=== PATIENT | male | born 1950 | race Caucasian/White ===

== ENCOUNTER → 2017-09-19 | Outpatient (CLI) | payer MEDICARE, OTHER ==
--- NOTE | 2017-09-19 16:37 | RADIOLOGY REPORT (SQ) ---
EXAM DESCRIPTION: CHEST PA/LATERAL COMPLETED DATE/TIME: 09/19/2017 4:17 pm REASON FOR STUDY: COUGH COMPARISON: 11/03/2015. EXAM PARAMETERS: NUMBER OF VIEWS: two views TECHNIQUE: Digital Frontal and Lateral radiographic views of the chest acquired. RADIATION DOSE: NA LIMITATIONS: none FINDINGS: LUNGS AND PLEURA: No opacities, masses or pneumothorax. No pleural effusion. MEDIASTINUM AND HILAR STRUCTURES: No masses or contour abnormalities. HEART AND VASCULAR STRUCTURES: Heart normal size. No evidence for failure. BONES: No acute findings. HARDWARE: Pacemaker. OTHER: No other significant finding. IMPRESSION: NO SIGNIFICANT RADIOGRAPHIC FINDING IN THE CHEST. TECHNICAL DOCUMENTATION: JOB ID: [id number] [employer]- All Rights Reserved
== END ==
LOC: OD 16:02
PROVIDERS: ATTEND Family Medicine
DX: R05 Cough (principal)
CPT/HCPCS: 71020

== ENCOUNTER → 2018-01-28 | Outpatient (CLI) | payer MEDICARE ==
--- NOTE | 2018-01-28 10:14 | RADIOLOGY REPORT (SQ) ---
EXAM DESCRIPTION: HIP LEFT AP/LATERAL COMPLETED DATE/TIME: 01/28/2018 9:23 am REASON FOR STUDY: LEFT HIP PAIN M25.552 PAIN IN LEFT HIP COMPARISON: None. NUMBER OF VIEWS: Two views. TECHNIQUE: AP pelvis and additional frog-leg view of the left hip. LIMITATIONS: None. FINDINGS: MINERALIZATION: Normal. LEFT HIP: No fracture or dislocation. No worrisome bone lesions. No contour deformity. No joint spa ce narrowing. RIGHT HIP: No fracture or dislocation. No worrisome bone lesions. PUBIS AND ISCHIUM: No fracture. PELVIS: No fracture. SACRUM: No fracture or dislocation. No worrisome bone lesions. LOWER LUMBAR SPINE: No fracture or dislocation. No worrisome bone lesions. No significant disc disea se. SOFT TISSUES: No findings. OTHER: No other significant finding. IMPRESSION: NEGATIVE STUDY OF THE LEFT HIP AND PELVIS. NO EXPLANATION FOR PAIN. TECHNICAL DOCUMENTATION: JOB ID: [id number] [employer]- All Rights Reserved Reading location - IP/workstation name: [email or web address]
== END ==
LOC: OD 09:01
PROVIDERS: ATTEND Physician Assistant
DX: M25.552 Pain in left hip (principal)

== ENCOUNTER → 2018-04-25 | Outpatient (CLI) | payer MEDICARE ==
--- NOTE | 2018-04-25 13:19 | RADIOLOGY REPORT (SQ) ---
EXAM DESCRIPTION: CT ABD/PELVIS NO ORAL OR IV COMPLETED DATE/TIME: 04/25/2018 12:29 pm REASON FOR STUDY: HEMATURIA (R31.9) R31.9 HEMATURIA, UNSPECIFIED COMPARISON: None. TECHNIQUE: CT scan of the abdomen and pelvis performed without intravenous or oral contrast. Images reviewed with lung, soft tissue, and bone windows. Reconstructed coronal and sagittal MPR images revi ewed. All images stored on PACS. All CT scanners at this facility use dose modulation, iterative reconstruction, and/or weight based d osing when appropriate to reduce radiation dose to as low as reasonably achievable (ALARA). [facility]: Dose Right [facility]: CareDose [facility]: Dose Right [facility]: Teradose 4D [facility]: [employer] RADIATION DOSE: CT Rad equipment meets quality standard of care and radiation dose reduction techniq ues were employed. CTDIvol: 31.3 mGy. DLP: 1718 mGy-cm.mGy. LIMITATIONS: Body habitus. FINDINGS: LOWER CHEST: No acute findings. NON-CONTRASTED LIVER, SPLEEN, ADRENALS: Evaluation limited by lack of IV contrast. No identified sign ificant masses. PANCREAS: No masses. No peripancreatic inflammatory changes. GALLBLADDER: Gallstones. No inflammatory changes to suggest cholecystitis. RIGHT KIDNEY AND URETER: No suspicious masses. Assessment limited by lack of IV contrast. No signif icant calcifications. No hydronephrosis or hydroureter. LEFT KIDNEY AND URETER: No suspicious masses. Assessment limited by lack of IV contrast. No signifi cant calcifications. No hydronephrosis or hydroureter. AORTA AND RETROPERITONEUM: No aneurysm. No retroperitoneal masses or adenopathy. BOWEL AND PERITONEAL CAVITY: No obvious masses or inflammatory changes. No free fluid. APPENDIX: Not visualized. PELVIS, BLADDER, AND ABDOMINAL WALL:No abnormal masses. No free fluid. Bladder normal. BONES: No acute findings OTHER: No other significant finding. IMPRESSION: No acute findings in the abdomen or pelvis. COMMENT: Quality ID # 436: Final reports with documentation of one or more dose reduction techniques (e.g., Automated exposure control, adjustment of the mA and/or kV according to patient size, use of iterative reconstruction technique) TECHNICAL DOCUMENTATION: JOB ID: [id number] [employer]- All Rights Reserved Reading location - IP/workstation name: [email or web address]
== END ==
LOC: RAD 12:13
PROVIDERS: ATTEND Family Medicine
DX: R31.9 Hematuria, unspecified (principal)
CPT/HCPCS: 74176

== ENCOUNTER → 2018-12-01 | Day surgery (SDC) | payer MEDICARE ==
[~2018-12-01] MED LIST: BUPIVACAINE HCL 0.5 % INJ/PF 30 ML SDV ONE; METHYLPREDNISOLONE ACETATE INJ 80 MG/1 ML VIAL ONE
--- NOTE | 2018-12-01 14:37 | RADIOLOGY REPORT (SQ) ---
EXAM DESCRIPTION: INJECT/ASPIR HIP/SHLDR/KNEE; FLUORO/NEEDLE PLACEMENT COMPLETED DATE/TIME: 12/01/2018 2:02 pm REASON FOR STUDY: OA LEFT HIP (M16.12) M16.12 UNILATERAL PRIMARY OSTEOARTHRITIS, LEFT HIP COMPARISON: None. FLUOROSCOPY TIME: 34 seconds. 1 images saved to PACS. LIMITATIONS: None. PROCEDURE: SITE OF INJECTION: Left hip. LOCALIZING CONTRAST TYPE AND DOSE: 1 mL Omnipaque 300. MEDICATION TYPE AND DOSE: 5 mL Sensorcaine and 80 mg Depo-Medrol. Using local anesthesia and sterile technique with fluoroscopic guidance, the needle was advanced into the joint. Iodinated contrast was injected to verify intraarticular placement. This was followed by therapeutic injection of the indicated medications. The needle was removed. There were no immediat e complications. Preprocedure pain level: 3/5. Postprocedure pain level: 1/5. IMPRESSION: THERAPEUTIC INJECTION OF THE LEFT HIP JOINT ABOVE. COMMENT: Patient medication list reviewed: Yes- Quality ID# 130:Eligible professional attests to doc umenting in the medical record they obtained, updated, or reviewed the patient's current medications. . Quality ID 145: Final reports for procedures using fluoroscopy that document radiation exposure chidi jessy, or exposure time and number of fluorographic images (if radiation exposure indices are not avail able) TECHNICAL DOCUMENTATION: JOB ID: [id number] [employer]- All Rights Reserved Reading location - IP/workstation name: [email or web address]
--- NOTE | 2018-12-01 14:37 | RADIOLOGY REPORT (SQ) ---
EXAM DESCRIPTION: INJECT/ASPIR HIP/SHLDR/KNEE; FLUORO/NEEDLE PLACEMENT COMPLETED DATE/TIME: 12/01/2018 2:02 pm REASON FOR STUDY: OA LEFT HIP (M16.12) M16.12 UNILATERAL PRIMARY OSTEOARTHRITIS, LEFT HIP COMPARISON: None. FLUOROSCOPY TIME: 34 seconds. 1 images saved to PACS. LIMITATIONS: None. PROCEDURE: SITE OF INJECTION: Left hip. LOCALIZING CONTRAST TYPE AND DOSE: 1 mL Omnipaque 300. MEDICATION TYPE AND DOSE: 5 mL Sensorcaine and 80 mg Depo-Medrol. Using local anesthesia and sterile technique with fluoroscopic guidance, the needle was advanced into the joint. Iodinated contrast was injected to verify intraarticular placement. This was followed by therapeutic injection of the indicated medications. The needle was removed. There were no immediat e complications. Preprocedure pain level: 3/5. Postprocedure pain level: 1/5. IMPRESSION: THERAPEUTIC INJECTION OF THE LEFT HIP JOINT ABOVE. COMMENT: Patient medication list reviewed: Yes- Quality ID# 130:Eligible professional attests to doc umenting in the medical record they obtained, updated, or reviewed the patient's current medications. . Quality ID 145: Final reports for procedures using fluoroscopy that document radiation exposure chidi jessy, or exposure time and number of fluorographic images (if radiation exposure indices are not avail able) TECHNICAL DOCUMENTATION: JOB ID: [id number] [employer]- All Rights Reserved Reading location - IP/workstation name: [email or web address]
== END ==
LOC: RAD 12:31
PROVIDERS: ATTEND Orthopaedic Surgery Sports Medicine
DX: M16.12 Unilateral primary osteoarthritis, left hip (principal)
CPT/HCPCS: 20610; 77002; J3490; J1040

== ENCOUNTER → 2019-01-21 | Outpatient (CLI) | payer MEDICARE ==
--- NOTE | 2019-01-21 16:38 | RADIOLOGY REPORT (SQ) ---
EXAM DESCRIPTION: FEMUR LEFT COMPLETED DATE/TIME: 01/21/2019 4:12 pm REASON FOR STUDY: M25.552 PAIN IN LEFT HIP R10.32 LEFT LOWER QUADRANT PAIN COMPARISON: Pelvis and left hip films 01/28/2018 NUMBER OF VIEWS: Two views. TECHNIQUE: Two radiographic images acquired of the left femur to include hip and knee in at least on e projection. LIMITATIONS: Morbidly obese patient FINDINGS: MINERALIZATION: Normal. BONES: There is avascular necrosis along the weight-bearing surface left femoral head, with subcortic al sclerosis and articular surface collapse. No acute fracture of the left femur. SOFT TISSUES: No obvious swelling or foreign body. OTHER: No other significant finding. IMPRESSION: Avascular necrosis left femoral head TECHNICAL DOCUMENTATION: JOB ID: [id number] [employer]- All Rights Reserved Reading location - IP/workstation name: [email or web address]
--- NOTE | 2019-01-21 16:40 | RADIOLOGY REPORT (SQ) ---
EXAM DESCRIPTION: HIP LEFT AP/LATERAL COMPLETED DATE/TIME: 01/21/2019 4:12 pm REASON FOR STUDY: M25.552 R10.32 LEFT LOWER QUADRANT PAIN COMPARISON: Left femur films same date Left hip films 01/28/2018 CT abdomen pelvis 04/25/2018 NUMBER OF VIEWS: Two views. TECHNIQUE: AP pelvis and additional frog-leg view of the left hip. LIMITATIONS: Morbidly obese patient FINDINGS: MINERALIZATION: Normal. LEFT HIP: No acute fracture. There is avascular necrosis with left femoral head subcortical sclerosi s and articular surface collapse. RIGHT HIP: No fracture or dislocation. No worrisome bone lesions. PUBIS AND ISCHIUM: No fracture. PELVIS: No fracture. SACRUM: No fracture or dislocation. No worrisome bone lesions. LOWER LUMBAR SPINE: Not in the field of view SOFT TISSUES: No findings. OTHER: Left SI joint sclerosis IMPRESSION: Avascular necrosis left femoral head TECHNICAL DOCUMENTATION: JOB ID: [id number] [employer]- All Rights Reserved Reading location - IP/workstation name: [email or web address]
--- NOTE | 2019-01-21 17:59 | RADIOLOGY REPORT (SQ) ---
EXAM DESCRIPTION: U/S NON OB PEL LTD W/DOPPLER COMPLETED DATE/TIME: 01/21/2019 5:34 pm REASON FOR STUDY: R10.32 LEFT LOWER QUADRANT PAIN R10.32 LEFT LOWER QUADRANT PAIN COMPARISON: None. TECHNIQUE: Dynamic and static grayscale images acquired of the localized site of clinical concern an d recorded on PACS. Additional selected color Doppler and spectral images recorded. SITE OF CONCERN: Left groin. Limited imaging of the right groin for comparison. LIMITATIONS: None. FINDINGS: SKIN AND SUBCUTANEOUS TISSUES: No masses. No fluid collections. No edema. No foreign fernando s. DEEP SOFT TISSUES/MUSCLES: No masses. No fluid collections. No edema. VASCULAR: No increased or decreased vascularity. No occlusions. OTHER: No hernias identified. IMPRESSION: Negative groin ultrasound. No mass or hernia detected. TECHNICAL DOCUMENTATION: JOB ID: [id number] [employer]- All Rights Reserved Reading location - IP/workstation name: [email or web address]
== END ==
LOC: RAD 15:51
PROVIDERS: ATTEND Family Medicine
DX: M87.852 Other osteonecrosis, left femur (principal); R10.32 Left lower quadrant pain; M25.552 Pain in left hip
CPT/HCPCS: 76857; 93976

== ENCOUNTER → 2019-01-29 | Outpatient (CLI) | payer MEDICARE ==
--- NOTE | 2019-01-29 17:06 | RADIOLOGY REPORT (SQ) ---
EXAM DESCRIPTION: U/S SCROTUM W/O DOPPLER COMPLETED DATE/TIME: 01/29/2019 4:49 pm REASON FOR STUDY: SCROTAL PAIN COMPARISON: None. TECHNIQUE: Static and realtime landaverde scale imaging of the scrotum and testes. Selected color Doppler and spectral images recorded to document blood flow. LIMITATIONS: None. FINDINGS: RIGHT: TESTICLE: Normal size, 3.6 x 3 x 2 cm in size. Normal echotexture. Normal blood flow. No mass. EPIDIDYMIS: Normal. HYDROCELE OR VARICOCELE: No. HERNIA OR EXTRA-TESTICULAR MASS: No. OTHER: No other significant finding. LEFT: TESTICLE: Normal size, 3.5 x 2.2 x 2.1 cm in size. Normal echotexture. Normal blood flow. No mass. EPIDIDYMIS: Normal. HYDROCELE OR VARICOCELE: Moderate-sized left hydrocele. No varicocele HERNIA OR EXTRA-TESTICULAR MASS: No. OTHER: No other significant finding. IMPRESSION: Moderate size left hydrocele. Otherwise unremarkable study TECHNICAL DOCUMENTATION: JOB ID: [id number] [employer]- All Rights Reserved Reading location - IP/workstation name: [email or web address]
== END ==
LOC: RAD 15:38
PROVIDERS: ATTEND Family Medicine
DX: N50.82 Scrotal pain (principal)
CPT/HCPCS: 76870

== ENCOUNTER 2020-08-21 09:07 | Inpatient (IN) | payer MEDICARE ==
[2020-08-21 11:08] LABS: HEMOGLOBIN 14.9 g/dL (13.5-17.0); MEAN CORPUSCULAR HGB CONC 33.1 g/dL (32.0-36.0); MEAN CORPUSCULAR VOLUME 97 fl (80-97); PLATELET COUNT 115 10^3/uL (150-450); RED BLOOD COUNT 4.65 10^6/uL (4.35-5.55); RED CELL DISTRIBUTION WIDTH 13.8 % (11.5-14.0); WHITE BLOOD COUNT 13.1 10^3/uL (4.0-10.5)
--- NOTE | 2020-08-21 11:10 | ER Document Report ---
Entered by MARIAELENA MORRELL SCRIBE 08/21/20 1004 Acting as scribe for:ROBBIE PIERSON MD ED General - General Chief Complaint: Flank Pain Stated Complaint: CHEST PAIN/FLANK PAIN Time Seen by Provider: 08/21/20 09:53 Mode of Arrival: Ambulatory Information source: Patient Notes: This 70 year old male patient presents to the emergency department today with complaints of right upper quadrant abdominal pain that began yesterday evening after eating. Patient was lying down in a chair when the yesterday night when the pain began. He reports that pain radiates into his back and right chest wall, mentioning that it "feels like pleurisy". Patient mentions some nasal co ngestion as well. TRAVEL OUTSIDE OF THE [place] IN LAST 30 DAYS: No - Related Data Allergies/Adverse Reactions: No Known Allergies Allergy (Verified 08/21/20 09:31) Home Medications: eliquis, lisinopril, pravastatin, clonidine, flomax, albuterol, flonase, metroprolol, topiramate Past Medical History - General Information source: Patient - Social History Smoking Status: Former Smoker Cigarette use (# per day): No - quit in 2000 Chew tobacco use (# tins/day): No Frequency of alcohol use: None Drug Abuse: None Lives with: Family Family History: Reviewed & Not Pertinent Patient has homicidal ideation: No - Past Medical History Cardiac Medical History: Reports: Hx Atrial Fibrillation, Hx Hypercholesterolemia, Hx Hypertension Pulmonary Medical History: Reports: Hx COPD GI Medical History: Reports: Hx Gastroesophageal Reflux Disease Past Surgical History: Reports: Hx Abdominal Surgery - hernia w/ 1ft bowel resected, Hx Cardiac Surgery - pacemaker-demand, Hx Orthopedic Surgery - lt hip - Immunizations Hx Diphtheria, Pertussis, Tetanus Vaccination: Yes Review of Systems - Review of Systems Constitutional: No symptoms reported EENT: See HPI, Nose congestion Cardiovascular: No symptoms reported Respiratory: No symptoms reported Gastrointestinal: See HPI, Abdominal pain Genitourinary: No symptoms reported Male Genitourinary: No symptoms reported Musculoskeletal: No symptoms reported Skin: No symptoms reported Hematologic/Lymphatic: No symptoms reported Neurological/Psychological: No symptoms reported -: Yes All other systems reviewed and negative Physical Exam - Vital signs Vitals: Temp Pulse Resp BP Pulse Ox 97.4 F 83 18 148/81 H 96 08/21/20 09:21 08/21/20 09:21 08/21/20 09:21 08/21/20 09:21 08/21/20 09:21 - Notes Notes: Physical Exam: General: Alert, appears well. HEENT: Normocephalic. Atraumatic. PERRL. Extraocular movements intact. Oropharynx clear. Neck: Supple. Non-tender. Respiratory: No respiratory distress. Clear and equal breath sounds bilaterally. Cardiovascular: Regular rate and rhythm. Abdominal: Morbidly obese. RUQ tenderness to palpation. No distension. Normal Bowel Sounds. Back: No gross abnormalities. Extremities: Moves all four extremities. Upper extremities: Normal inspection. Normal ROM. Lower extremities: Normal inspection. No edema. Normal ROM. Neurological: Normal cognition. AAOx4. Normal speech. Psychological: Normal affect. Normal Mood. Skin: Warm. Dry. Normal color. Course - Vital Signs Vital signs: Temp Pulse Resp BP Pulse Ox 97.4 F 83 18 148/81 H 96 08/21/20 09:21 08/21/20 09:21 08/21/20 09:21 08/21/20 09:21 08/21/20 09:21 - Laboratory Result Diagrams: 08/21/20 10:22 08/21/20 10:22 Laboratory results interpreted by me: 08/21/20 08/21/20 08/21/20 10:22 10:22 10:22 WBC 13.1 H Plt Count 115 L Seg Neuts % (Manual) 94 H Lymphocytes % (Manual) 3 L Abs Neuts (Manual) 12.3 H Abs Lymphs (Manual) 0.4 L Sodium 134.9 L Chloride 96 L Glucose 182 H Magnesium 1.5 L Total Bilirubin 2.0 H Creatine Kinase 47 L Lipase 19.6 L Urine Glucose (UA) 150 H Urine Ketones 20 H Urine Urobilinogen 4.0 H - Diagnostic Test Radiology reviewed: Image reviewed, Reports reviewed - Gallbladder ultrasound showed multiple stones with gallbladder wall thickening and pericholecystic fluid - EKG Interpretation by Me EKG shows normal: [place], Intervals, QRS Complexes, ST-T Waves Rate: Normal - 85 Rhythm: A.Fib [place]/QRS: RBBB When compared to previous EKG there are: Changes noted - Consults Dr. Christopher Time consulted: 12:01 Consulted provider: will see as inpatient Dr. Carrizales Time consulted: 12:04 Consulted provider: will see as inpatient Discharge - Discharge Clinical Impression: Acute calculous cholecystitis, Chronic atrial fibrillation Leukocytosis Qualifiers: Leukocytosis type: unspecified Qualified Code(s): D72.829 - Elevated white blood cell count, unspecified Condition: Stable Disposition: ADMITTED INPATIENT Admitting Provider: Justus Carrizales covering Unit Admitted: Telemetry I personally performed the services described in the documentation, reviewed and edited the documentation which was dictated to the scribe in my presence, and it accurately records my words and actions.
[2020-08-21 11:22] LABS: ALBUMIN 3.8 g/dL (3.5-5.0); ALKALINE PHOSPHATASE 61 U/L (38-126); ANION GAP 10 (5-19); APPEARANCE,URINE CLEAR; ASPARTATE AMINO TRANSFERASE 22 U/L (17-59); BILIRUBIN,DIRECT 0.1 mg/dL (0.0-0.4); BILIRUBIN,URINE NEGATIVE (NEGATIVE); BLOOD UREA NITROGEN 14 mg/dL (7-20); CALCIUM 9.2 mg/dL (8.4-10.2); CARBON DIOXIDE 29 mmol/L (22-30); CHLORIDE 96 mmol/L (98-107); COLOR,URINE YELLOW; CREATINE KINASE 47 U/L (55-170); GLUCOSE 182 mg/dL (75-110); GLUCOSE, URINE 150 mg/dL (NEGATIVE); KETONES,URINE 20 mg/dL (NEGATIVE); LEUKOCYTE ESTERASE,URINE NEGATIVE (NEGATIVE); NITRITE,URINE NEGATIVE (NEGATIVE); POTASSIUM 4.3 mmol/L (3.6-5.0); PROTEIN,URINE NEGATIVE (NEGATIVE); TOTAL PROTEIN 6.5 g/dL (6.3-8.2); URINE SPECIFIC GRAVITY 1.026
[2020-08-21 11:34] LABS: ABSOLUTE LYMPHOCYTES# (MANUAL) 0.4 10^3/uL (0.5-4.7); ABSOLUTE MONOCYTES # (MANUAL) 0.4 10^3/uL (0.1-1.4); BASOPHILS % (MANUAL) 0 % (0-2); EOSINOPHILS % (MANUAL) 0 % (0-6); LYMPHOCYTES % (MANUAL) 3 % (13-45); MONOCYTES % (MANUAL) 3 % (3-13); SEGMENTED NEUTROPHILS % (MAN) 94 % (42-78); TOTAL CELLS COUNTED 100
[2020-08-21 11:35] LABS: PLATELET COMMENT DECREASED; RBC MORPHOLOGY COMMENT NORMO-CYTIC/CHROMIC
--- NOTE | 2020-08-21 11:39 | RADIOLOGY REPORT (SQ) ---
EXAM DESCRIPTION: U/S ABDOMEN LIMITED W/O DOP IMAGES COMPLETED DATE/TIME: 08/21/2020 11:17 am REASON FOR STUDY: Postprandial RUQ abd pain COMPARISON: CT abdomen pelvis 04/25/2018 TECHNIQUE: Dynamic and static grayscale images acquired of the abdomen and recorded on PACS. Additio nal selected color Doppler and spectral images recorded. LIMITATIONS: Body habitus, midline bowel gas FINDINGS: PANCREAS: Diffusely fatty midline pancreas LIVER: No masses. Diffuse fatty infiltration. Mildly enlarged. LIVER VASCULATURE: Normal directional flow of the main portal vein and hepatic veins. GALLBLADDER: Multiple shadowing stones. Diffuse gallbladder wall thickening with the pericholecystic fluid worrisome for acute cholecystitis. ULTRASOUND-DETECTED STOCKTON'S SIGN: Negative. INTRAHEPATIC DUCTS AND COMMON DUCT: No intrahepatic biliary ductal dilatation. Common duct at the po rta hepatis not well seen. INFERIOR VENA CAVA: Normal flow. AORTA: Obscured by midline bowel gas RIGHT KIDNEY: No hydronephrosis. Grossly normal size PERITONEAL AND RIGHT PLEURAL SPACE: No ascites or effusions. OTHER: No other significant findings. IMPRESSION: Multiple shadowing gallstones. Gallbladder wall thickening with pericholecystic fluid. Findings are worrisome for acute cholecystitis. TECHNICAL DOCUMENTATION: JOB ID: [id number] 2010 [employer]- All Rights Reserved Reading location - IP/workstation name: [email or web address]
[2020-08-21] MEDS ORDERED: PIPERACILLIN/TAZOBACTAM 4.5 GM VIAL IV ONE (12:02)
[2020-08-21] MEDS ORDERED: MORPHINE SULFATE 10 MG/ML INJ IV ONE (12:11)
[2020-08-21] MEDS ORDERED: ONDANSETRON 4 MG TAB.RAPDIS PO ONE (12:11)
[2020-08-21] MEDS ORDERED: NORMAL SALINE 1000 ML 500 ML IV ONE (12:12)
--- NOTE | 2020-08-21 15:01 | EKG REPORT ---
SEVERITY:- ABNORMAL ECG - ATRIAL FIBRILLATION RIGHT BUNDLE BRANCH BLOCK and LAFB NONSPECIFIC ST-T CHANGES- INFERIOR LEADS : Confirmed by: Bradley Angel MD 21-Aug-2020 15:01:10
[2020-08-21] MEDS ORDERED: ALBUTEROL SULFATE HFA (90 MCG/PUFF) 8 GM MDI (1 MDI/ER DISP) IH PRN (15:04)
[2020-08-21] MEDS ORDERED: ALBUTEROL SULFATE HFA (90 MCG/PUFF) 8 GM MDI IH PRN (15:13)
[2020-08-21] MEDS ORDERED: FLUTICASONE PROPION IH SCH (15:15)
[2020-08-21] MEDS ORDERED: SALMETEROL IH SCH (15:15)
[2020-08-21] MEDS ORDERED: [UNRECOGNIZED DRUG - OTHER] IH SCH (15:15)
[2020-08-21] MEDS: RINGERS SOLUTION,LACTATED 1,000 ML IV PRN (15:34)
[2020-08-21 16:28] LABS: FREE T4 (FREE THYROXINE) 1.17 ng/dL (0.78-2.19)
[2020-08-21] MEDS: METOPROLOL SUCCINATE 50 MG TAB.SR.24H PO SCH (16:29)
[2020-08-21] MEDS: TAMSULOSIN HCL 0.4 MG CAP.SR.24H PO SCH (16:29)
[2020-08-21] MEDS: LISINOPRIL 10 MG TABLET PO SCH (16:30)
[2020-08-21 16:42] LABS: THYROID STIMULATING HORMONE 0.62 uIU/mL (0.47-4.68)
[2020-08-21 17:10] LABS: INTERNATIONAL RATION (INR) 1.22; PROTHROMBIN TIME 15.6 SEC (11.4-15.4)
[2020-08-21 17:11] LABS: PARTIAL THROMBOPLASTIN TIME 33.7 SEC (23.5-35.8)
[2020-08-21 17:17] LABS: PHOSPHORUS 3.5 mg/dL (2.5-4.5)
[2020-08-21] MEDS: AMPICILLIN SODIUM/SULBACTAM NA 3 GM in NORMAL SALINE 100 ML IV SCH (17:23)
[2020-08-21] MEDS: OXYCODONE-ACETAMINOPHEN 5-325 MG TABLET PO PRN ×2 (17:23→22:42)
[2020-08-21 17:32] LABS: TROPONIN I < 0.012 ng/mL
--- NOTE | 2020-08-21 17:39 | PDOC H&P ---
History of Present Illness Admission Date/PCP: 08/21/20 12:17 ADEEL RING MD History of Present Illness: DASHA PRASAD is a 70 year old male ,He has multiple comorbid conditions including chronic obstructive lung disease, morbid obesity BMI is 48, on chronic anticoagulation for CVA prophylaxis because of atrial fibrillation, he came to the emergency room for evaluation of upper abdominal pain radiating to his back, the pain is provoked typically after food ingestion, in the emergency room ultrasound of the upper quadrant of the abdomen was obtained demonstrated multiple shadowing stones, diffuse gallbladder wall thickening with pericholecystic fluid worrisome for acute cholecystitis. Past Medical History Cardiac Medical History: Reports: Atrial Fibrillation, Hyperlipidema, Hypertension Pulmonary Medical History: Reports: Chronic Obstructive Pulmonary Disease (COPD) GI Medical History: Reports: Gastroesophageal Reflux Disease Musculoskeltal Medical History: Denies: Arthritis Past Surgical History Past Surgical History: Reports: Orthopedic Surgery - lt hip Social History Lives with: Family Smoking Status: Former Smoker Electronic Cigarette use?: No Family History Family History: Reviewed & Not Pertinent Parental Family History Reviewed: Yes Children Family History Reviewed: Yes Sibling(s) Family History Reviewed.: Yes Medication/Allergy Home Medications: Pravastatin Sodium [Pravachol] 20 mg PO QHS 10/03/12 Apixaban [Eliquis 5 mg Tablet] 5 mg PO BID 12/30/15 Lisinopril 20 mg PO DAILY 12/30/15 Topiramate [Topamax 100 Mg Tablet] 100 mg PO QHS 12/30/15 Albuterol Sulfate [Albuterol Sulfate Hfa] 2 puff IH Q4HP PRN 08/21/20 Clonidine HCl [Catapres 0.1 mg Tablet] 0.1 mg PO QHS 08/21/20 Fluticasone Propion/Salmeterol [Fluticasone-Salmeterol 100-50] 1 inh IH Q12 08/21/20 Metoprolol Succinate [Toprol Xl 50 mg Tab.sr] 50 mg PO DAILY 08/21/20 Tamsulosin HCl [Flomax 0.4 mg Cap.sr] 0.4 mg PO DAILY 08/21/20 Allergies/Adverse Reactions: No Known Allergies Allergy (Verified 08/21/20 09:31) Review of Systems Constitutional: ABSENT: chills, fever(s), headache(s), weight gain, weight loss Eyes: ABSENT: visual disturbances Ears: ABSENT: hearing changes Cardiovascular: ABSENT: chest pain, dyspnea on exertion, edema, orthropnea, palpitations Respiratory: ABSENT: cough, hemoptysis Gastrointestinal: PRESENT: abdominal pain. ABSENT: constipation, diarrhea, hematemesis, hematochezia, nausea, vomiting Genitourinary: ABSENT: dysuria, hematuria Musculoskeletal: ABSENT: joint swelling Integumentary: ABSENT: rash, wounds Neurological: ABSENT: abnormal gait, abnormal speech, confusion, dizziness, focal weakness, syncope Psychiatric: ABSENT: anxiety, depression, homidical ideation, suicidal ideation Endocrine: ABSENT: cold intolerance, heat intolerance, menstrual abnormalities, polydipsia, polyuria Hematologic/Lymphatic: ABSENT: easy bleeding, easy bruising, lymphadenopathy Physical Exam Vital Signs: Temp Pulse Resp BP Pulse Ox 97.6 F 78 23 H 140/86 H 97 08/21/20 14:03 08/21/20 14:03 08/21/20 14:03 08/21/20 14:03 08/21/20 14:03 Intake & Output 08/20/20 08/21/20 08/22/20 06:59 06:59 06:59 Intake Total 500 Balance 500 Weight 154.5 kg General appearance: PRESENT: obese Head exam: PRESENT: atraumatic, normocephalic Eye exam: PRESENT: conjunctiva pink, EOMI, PERRLA Ear exam: PRESENT: normal external ear exam Mouth exam: PRESENT: moist, tongue midline Neck exam: PRESENT: full ROM Respiratory exam: PRESENT: clear to auscultation [place] Cardiovascular exam: PRESENT: RRR, +S1, +S2 Pulses: PRESENT: normal dorsalis pedis pul, +2 pedal pulses bilateral Vascular exam: PRESENT: normal capillary refill GI/Abdominal exam: PRESENT: normal bowel sounds, soft, tenderness, other - Right upper quadrant abdominal tenderness Rectal exam: PRESENT: deferred Neurological exam: PRESENT: alert, awake, oriented to person, oriented to place, oriented to time, oriented to situation, CN II-XII grossly intact Psychiatric exam: PRESENT: appropriate affect, normal mood Skin exam: PRESENT: dry, intact, warm Results Laboratory Results: 08/21/20 10:22 08/21/20 10:22 08/21/20 08/21/20 08/21/20 10:22 10:22 10:22 WBC 13.1 H RBC 4.65 Hgb 14.9 Hct 45.0 MCV 97 MCH 32.0 MCHC 33.1 RDW 13.8 Plt Count 115 L Seg Neutrophils % Not Reportable Sodium 134.9 L Potassium 4.3 Chloride 96 L Carbon Dioxide 29 Anion Gap 10 BUN 14 Creatinine 0.67 Est GFR ( Amer) > 60 Glucose 182 H Calcium 9.2 Phosphorus Magnesium 1.5 L Total Bilirubin 2.0 H AST 22 Alkaline Phosphatase 61 Ammonia Total Protein 6.5 Albumin 3.8 Amylase Lipase 19.6 L TSH Free T4 Urine Color YELLOW Urine Appearance CLEAR Urine pH 7.0 Ur Specific [place] 1.026 Urine Protein NEGATIVE Urine Glucose (UA) 150 H Urine Ketones 20 H Urine Blood NEGATIVE Urine Nitrite NEGATIVE Ur Leukocyte Esterase NEGATIVE Urine WBC (Auto) 1 Urine RBC (Auto) 3 08/21/20 08/21/20 08/21/20 10:22 16:50 16:50 WBC RBC Hgb Hct MCV MCH MCHC RDW Plt Count Seg Neutrophils % Sodium Potassium Chloride Carbon Dioxide Anion Gap BUN Creatinine Est GFR ( Amer) Glucose Calcium Phosphorus 3.5 Magnesium 1.5 L Total Bilirubin AST Alkaline Phosphatase Ammonia < 8.7 L Total Protein Albumin Amylase 32 Lipase 14.7 L TSH 0.62 Free T4 1.17 Urine Color Urine Appearance Urine pH Ur Specific [place] Urine Protein Urine Glucose (UA) Urine Ketones Urine Blood Urine Nitrite Ur Leukocyte Esterase Urine WBC (Auto) Urine RBC (Auto) 08/21/20 08/21/20 08/21/20 10:22 10:22 10:22 Creatine Kinase 47 L Troponin I < 0.012 NT-Pro-B Natriuret Pep 1260 H 08/21/20 16:50 Creatine Kinase 74 Troponin I NT-Pro-B Natriuret Pep Impressions: Abdomen Ultrasound 08/21/20 10:04 IMPRESSION: Multiple shadowing gallstones. Gallbladder wall thickening with pericholecystic fluid. Findings are worrisome for acute cholecystitis. Assessment & Plan - Diagnosis (1) Acute calculous cholecystitis Is this a current diagnosis for this admission?: Yes Plan: He has acute calculus cholecystitis, there is no biochemical evidence of choledocholithiasis, the alkaline phosphatase, SGOT/PT are normal, he has slight elevated serum bilirubin at 2, there is no evidence of gallstone pancreatitis, lipase is normal, surgery consulted, he has to stop Eliquis for 2 to 3 days before they can proceed to surgery (2) Morbid (severe) obesity due to excess calories Is this a current diagnosis for this admission?: Yes (3) Permanent atrial fibrillation Is this a current diagnosis for this admission?: Yes Plan: Is on Eliquis because of the A. fib, he has to stop Eliquis for 2 to 3 days - Time Time Spent: Greater than 70 Minutes Anticipated Discharge Disposition: Home, Self Care Anticipated Discharge Timeframe: within 48 hours
[2020-08-21] MEDS: ALBUTEROL SULFATE 0.083% NEB 2.5 MG/3 ML AMPUL NEB SCH ×2 (18:00→19:50)
--- NOTE | 2020-08-21 18:50 | PDOC CONSULTATION ---
Consultation Consult Date: 08/21/20 Provider Consulted: SURGICAL SURGICALIST Consult reason:: Acute cholecystitis History of Present Illness Admission Date/PCP: 08/21/20 12:17 ADEEL RING MD History of Present Illness: DASHA PRASAD is a 70 year old male seen at the request of Dr. Carrizales. This is a patient with multiple medical problems. He has obesity, atrial fibrillation, COPD. He presents with a 3-day history of sharp, stabbing right upper quadrant pain. His pain has been worsening in severity over the last 3 days. The pain would not go away, so he presented to the emergency department for evaluation. The pain started after eating turkey, ham, and dressing. The pain radiates around his right flank and into his back. He has had nausea and occasional vomiting. He denies chest pain, shortness of breath, fevers, chills, blurry vision, dizziness, orthostasis. He takes Eliquis for his atrial fibrillation. His last dose was 08/20/2020 at approximately 8 AM. Past Medical History Cardiac Medical History: Reports: Atrial Fibrillation, Hyperlipidema, Hypertension Pulmonary Medical History: Reports: Chronic Obstructive Pulmonary Disease (COPD) Neurological Medical History: Denies: Seizures GI Medical History: Reports: Gastroesophageal Reflux Disease Musculoskeltal Medical History: Denies: Arthritis Psychiatric Medical History: Denies: Depression Hematology: Denies: Anemia Past Surgical History Past Surgical History: Reports: Herniorrhaphy - Open ventral hernia repair with mesh, Orthopedic Surgery - lt hip Social History Lives with: Family Smoking Status: Former Smoker Electronic Cigarette use?: No Frequency of Alcohol Use: None - Previous heavy drinker, quit 20 years ago. Family History Family History: Reviewed & Not Pertinent Parental Family History Reviewed: Yes Children Family History Reviewed: Yes Sibling(s) Family History Reviewed.: Yes Medication/Allergy Home Medications: Pravastatin Sodium [Pravachol] 20 mg PO QHS 10/03/12 Apixaban [Eliquis 5 mg Tablet] 5 mg PO BID 12/30/15 Lisinopril 20 mg PO DAILY 12/30/15 Topiramate [Topamax 100 Mg Tablet] 100 mg PO QHS 12/30/15 Albuterol Sulfate [Albuterol Sulfate Hfa] 2 puff IH Q4HP PRN 08/21/20 Clonidine HCl [Catapres 0.1 mg Tablet] 0.1 mg PO QHS 08/21/20 Fluticasone Propion/Salmeterol [Fluticasone-Salmeterol 100-50] 1 inh IH Q12 08/21/20 Metoprolol Succinate [Toprol Xl 50 mg Tab.sr] 50 mg PO DAILY 08/21/20 Tamsulosin HCl [Flomax 0.4 mg Cap.sr] 0.4 mg PO DAILY 08/21/20 Allergies/Adverse Reactions: No Known Allergies Allergy (Verified 08/21/20 09:31) Review of Systems Constitutional: ABSENT: anorexia, chills, fatigue, fever(s), weakness Eyes: ABSENT: visual disturbances Ears: ABSENT: hearing changes Nose, Mouth, and Throat: ABSENT: headache(s) Cardiovascular: ABSENT: chest pain Respiratory: ABSENT: cough Gastrointestinal: PRESENT: abdominal pain, bloating, nausea, vomiting. ABSENT: hematemesis, hematochezia, melena Genitourinary: ABSENT: dysuria Musculoskeletal: PRESENT: back pain Integumentary: ABSENT: pruritus, rash Neurological: ABSENT: confusion, convulsions, dizziness Psychiatric: ABSENT: anxiety, depression Endocrine: ABSENT: cold intolerance, heat intolerance Hematologic/Lymphatic: PRESENT: easy bruising Physical Exam Vital Signs: Temp Pulse Resp BP Pulse Ox 97.6 F 75 18 140/86 H 92 08/21/20 14:03 08/21/20 18:00 08/21/20 18:00 08/21/20 14:03 08/21/20 18:00 Intake & Output 08/20/20 08/21/20 08/22/20 06:59 06:59 06:59 Intake Total 500 Balance 500 Weight 154.5 kg General appearance: PRESENT: morbidly obese Head exam: PRESENT: atraumatic, normocephalic Eye exam: PRESENT: EOMI, PERRLA. ABSENT: scleral icterus Mouth exam: PRESENT: moist, neck supple Neck exam: ABSENT: meningismus, tenderness, tracheal deviation Respiratory exam: PRESENT: unlabored. ABSENT: tachypnea, wheezes Cardiovascular exam: ABSENT: tachycardia GI/Abdominal exam: PRESENT: Romo's sign, tenderness - Right upper quadrant, other - Obese. ABSENT: distended Rectal exam: PRESENT: deferred Extremities exam: ABSENT: clubbing Musculoskeletal exam: ABSENT: deformity Neurological exam: PRESENT: alert, oriented to person, oriented to place, oriented to time, oriented to situation, CN II-XII grossly intact Psychiatric exam: ABSENT: agitated, anxious, depressed Skin exam: ABSENT: abrasion, cyanosis, erythema, jaundice Results Laboratory Results: 08/21/20 10:22 08/21/20 10:22 08/21/20 08/21/20 08/21/20 10:22 10:22 10:22 WBC 13.1 H RBC 4.65 Hgb 14.9 Hct 45.0 MCV 97 MCH 32.0 MCHC 33.1 RDW 13.8 Plt Count 115 L Seg Neutrophils % Not Reportable Sodium 134.9 L Potassium 4.3 Chloride 96 L Carbon Dioxide 29 Anion Gap 10 BUN 14 Creatinine 0.67 Est GFR ( Amer) > 60 Glucose 182 H Calcium 9.2 Phosphorus Magnesium 1.5 L Total Bilirubin 2.0 H AST 22 Alkaline Phosphatase 61 Ammonia Total Protein 6.5 Albumin 3.8 Amylase Lipase 19.6 L TSH Free T4 Urine Color YELLOW Urine Appearance CLEAR Urine pH 7.0 Ur Specific [place] 1.026 Urine Protein NEGATIVE Urine Glucose (UA) 150 H Urine Ketones 20 H Urine Blood NEGATIVE Urine Nitrite NEGATIVE Ur Leukocyte Esterase NEGATIVE Urine WBC (Auto) 1 Urine RBC (Auto) 3 08/21/20 08/21/20 08/21/20 10:22 16:50 16:50 WBC RBC Hgb Hct MCV MCH MCHC RDW Plt Count Seg Neutrophils % Sodium Potassium Chloride Carbon Dioxide Anion Gap BUN Creatinine Est GFR ( Amer) Glucose Calcium Phosphorus 3.5 Magnesium 1.5 L Total Bilirubin AST Alkaline Phosphatase Ammonia < 8.7 L Total Protein Albumin Amylase 32 Lipase 14.7 L TSH 0.62 Free T4 1.17 Urine Color Urine Appearance Urine pH Ur Specific [place] Urine Protein Urine Glucose (UA) Urine Ketones Urine Blood Urine Nitrite Ur Leukocyte Esterase Urine WBC (Auto) Urine RBC (Auto) 08/21/20 08/21/20 08/21/20 10:22 10:22 10:22 Creatine Kinase 47 L CK-MB (CK-2) Troponin I < 0.012 NT-Pro-B Natriuret Pep 1260 H 08/21/20 08/21/20 16:50 16:50 Creatine Kinase 74 CK-MB (CK-2) 0.80 Troponin I < 0.012 NT-Pro-B Natriuret Pep Impressions: Abdomen Ultrasound 08/21/20 10:04 IMPRESSION: Multiple shadowing gallstones. Gallbladder wall thickening with pericholecystic fluid. Findings are worrisome for acute cholecystitis. Assessment & Plan - Diagnosis (1) Acute calculous cholecystitis Is this a current diagnosis for this admission?: Yes - Plan Summary Plan Summary: 70-year-old male with multiple medical problems. He has acute cholecystitis on ultrasound. Patient has an obvious Romo sign on examination. I believe his physical exam, laboratory findings, and history are consistent with acute cholec ystitis. The patient is currently on Eliquis. His last dose was yesterday. Patient needs 48 hours from his last dose of Eliquis, before surgery can safely be performed. Continue antibiotics. Wait until Eliquis has metabolized, then will perform surgery.
--- NOTE | 2020-08-21 18:50 | EKG REPORT ---
SEVERITY:- ABNORMAL ECG - ATRIAL-SENSED VENTRICULAR-PACED COMPLEXES RIGHT BUNDLE BRANCH BLOCK NONSPECIFIC ST-T CHANGES- INFERIOR LEADS : Confirmed by: Bradley Angel MD 21-Aug-2020 18:49:29
[2020-08-21] MEDS ORDERED: PRAVASTATIN SODIUM 20 MG PO SCH (22:00)
[2020-08-21] MEDS: TOPIRAMATE 100 MG TABLET PO SCH (22:42)
[2020-08-21] MEDS: CLONIDINE HCL 0.1 MG TABLET PO SCH (22:42)
[2020-08-21 23:26] LABS: APPEARANCE,URINE SLIGHTLY-CLOUDY; BILIRUBIN,URINE NEGATIVE (NEGATIVE); COLOR,URINE AMBER; GLUCOSE, URINE 50 mg/dL (NEGATIVE); KETONES,URINE TRACE mg/dL (NEGATIVE); LEUKOCYTE ESTERASE,URINE NEGATIVE (NEGATIVE); NITRITE,URINE NEGATIVE (NEGATIVE); PROTEIN,URINE 30 mg/dL (NEGATIVE); URINE SPECIFIC GRAVITY 1.035
[2020-08-21] MEDS: AMPICILLIN SOD/SULBACTAM 3 GM VIAL IV PRN (23:26)
[2020-08-21 23:39] LABS: URINE AMPHETAMINES SCREEN NEGATIVE; URINE BARBITURATES SCREEN NEGATIVE; URINE BENZODIAZEPINES SCREEN NEGATIVE; URINE COCAINE SCREEN NEGATIVE; URINE MARIJUANA (THC) SCREEN NEGATIVE; URINE METHADONE SCREEN NEGATIVE; URINE PHENCYCLIDINE SCREEN NEGATIVE
[2020-08-21 23:49] LABS: CREATINE KINASE MB 0.62 ng/mL (<4.55)
[2020-08-21 23:50] LABS: TROPONIN I < 0.012 ng/mL
[2020-08-22] MEDS: ALBUTEROL SULFATE 0.083% NEB 2.5 MG/3 ML AMPUL NEB SCH ×9 (00:23→23:08)
[2020-08-22] MEDS: AMPICILLIN SODIUM/SULBACTAM NA 3 GM in NORMAL SALINE 100 ML IV SCH ×4 (03:59→19:39)
[2020-08-22] MEDS: OXYCODONE-ACETAMINOPHEN 5-325 MG TABLET PO PRN ×2 (06:07→21:22)
[2020-08-22] MEDS: RINGERS SOLUTION,LACTATED 1,000 ML IV PRN ×2 (06:11→21:25)
[2020-08-22 07:02] LABS: HEMATOCRIT 42.8 % (37.9-51.0); HEMOGLOBIN 14.4 g/dL (13.5-17.0); MEAN CORPUSCULAR HEMOGLOBIN 32.5 pg (27.0-33.4); MEAN CORPUSCULAR HGB CONC 33.6 g/dL (32.0-36.0); MEAN CORPUSCULAR VOLUME 97 fl (80-97); PLATELET COUNT 101 10^3/uL (150-450); RED BLOOD COUNT 4.42 10^6/uL (4.35-5.55); WHITE BLOOD COUNT 18.5 10^3/uL (4.0-10.5)
[2020-08-22 07:33] LABS: ALBUMIN 3.3 g/dL (3.5-5.0); ALKALINE PHOSPHATASE 52 U/L (38-126); ANION GAP 11 (5-19); ASPARTATE AMINO TRANSFERASE 24 U/L (17-59); BILIRUBIN,DIRECT 0.5 mg/dL (0.0-0.4); BILIRUBIN,TOTAL 3.2 mg/dL (0.2-1.3); BLOOD UREA NITROGEN 16 mg/dL (7-20); CALCIUM 8.4 mg/dL (8.4-10.2); CARBON DIOXIDE 29 mmol/L (22-30); CHLORIDE 93 mmol/L (98-107); GLUCOSE 123 mg/dL (75-110); POTASSIUM 4.1 mmol/L (3.6-5.0); TOTAL PROTEIN 5.9 g/dL (6.3-8.2); TRIGLYCERIDES 38 mg/dL (<150)
[2020-08-22 07:53] LABS: ABSOLUTE LYMPHOCYTES# (MANUAL) 1.1 10^3/uL (0.5-4.7); ABSOLUTE MONOCYTES # (MANUAL) 0.9 10^3/uL (0.1-1.4); BAND NEUTROPHILS % (MANUAL) 5 % (3-5); BASOPHILS % (MANUAL) 0 % (0-2); EOSINOPHILS % (MANUAL) 0 % (0-6); LYMPHOCYTES % (MANUAL) 6 % (13-45); MONOCYTES % (MANUAL) 5 % (3-13); SEGMENTED NEUTROPHILS % (MAN) 84 % (42-78); TOTAL CELLS COUNTED 100
[2020-08-22 07:55] LABS: ANISOCYTOSIS SLIGHT
[2020-08-22 07:56] LABS: PLATELET LARGE PRESENT; RBC MORPHOLOGY COMMENT NORMO-CYTIC/CHROMIC
[2020-08-22 07:57] LABS: PLATELET COMMENT DECREASED
[2020-08-22 08:07] LABS: DIRECT LDL < 30 mg/dL (<100)
[2020-08-22 08:16] LABS: CREATINE KINASE MB 0.54 ng/mL (<4.55); TROPONIN I < 0.012 ng/mL
[2020-08-22] MEDS: METOPROLOL SUCCINATE 50 MG TAB.SR.24H PO SCH (09:11)
[2020-08-22] MEDS: TAMSULOSIN HCL 0.4 MG CAP.SR.24H PO SCH (09:11)
[2020-08-22] MEDS: LISINOPRIL 10 MG TABLET PO SCH (09:11)
[2020-08-22] MEDS: FLUTICASONE/VILANTEROL 100-25 MCG/DOSE IH SCH (09:11)
--- NOTE | 2020-08-22 09:21 | PDOC CONSULTATION ---
Consultation Consult Date: 08/22/20 Attending physician:: ADEEL RING Provider Consulted: JENIFER BORRERO Consult reason:: Preoperative cardiovascular assessment History of Present Illness Admission Date/PCP: 08/21/20 12:17 ADEEL RING MD Patient complains of: Right upper quadrant pain History of Present Illness: DASHA PRASAD is a 70 year old male With the following active problems 1. Morbid obesity 2. Permanent atrial fibrillation 3. Right bundle branch block 4. L SC B Sci PPM(M # [id number]: #[id number]) 5. Long-term systemic anticoagulation-apixaban 6. Descending aorta aneurysm 7. Systemic hypertension 8. Dyslipidemia 70-year-old male who is usually followed by cardiology at [place]. Patient presents with right upper quadrant pain and has been confirmed to have acalculous cholecystitis. There are plans for surgery. No history suggestive of coronary artery disease. Patient reports permanent pacemaker implantation in May 2013 given history of atrial fibrillation. He is also systemically anticoagulated with apixaban for the same reason. 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 Specifically he does not report any chest pain or effort related dyspnea. His fairly tolerant of exercise and does not report any symptoms suggestive of angina. He is easily able to do more than 4 mets in terms of daily activities. Surgical history is positive for permanent pacemaker implantation on 05/28/2013 His pulse generator is [employer] and is right ventricular lead is [employer] ([id number]) Past Medical History Cardiac Medical History: Reports: Atrial Fibrillation, Hyperlipidema, Hypertension Pulmonary Medical History: Reports: Chronic Obstructive Pulmonary Disease (COPD) Neurological Medical History: Denies: Seizures GI Medical History: Reports: Gastroesophageal Reflux Disease Musculoskeltal Medical History: Denies: Arthritis Psychiatric Medical History: Denies: Depression Hematology: Denies: Anemia Past Surgical History Past Surgical History: Reports: Herniorrhaphy - Open ventral hernia repair with mesh, Orthopedic Surgery - lt hip Social History Lives with: Family Smoking Status: Former Smoker Electronic Cigarette use?: No Frequency of Alcohol Use: None - Previous heavy drinker, quit 20 years ago. Family History Family History: Reviewed & Not Pertinent Parental Family History Reviewed: Yes - No familial illnesses Children Family History Reviewed: NA Sibling(s) Family History Reviewed.: NA Medication/Allergy Home Medications: Pravastatin Sodium [Pravachol] 20 mg PO QHS 10/03/12 Apixaban [Eliquis 5 mg Tablet] 5 mg PO BID 12/30/15 Lisinopril 20 mg PO DAILY 12/30/15 Topiramate [Topamax 100 Mg Tablet] 100 mg PO QHS 12/30/15 Albuterol Sulfate [Albuterol Sulfate Hfa] 2 puff IH Q4HP PRN 08/21/20 Clonidine HCl [Catapres 0.1 mg Tablet] 0.1 mg PO QHS 08/21/20 Fluticasone Propion/Salmeterol [Fluticasone-Salmeterol 100-50] 1 inh IH Q12 08/21/20 Metoprolol Succinate [Toprol Xl 50 mg Tab.sr] 50 mg PO DAILY 08/21/20 Tamsulosin HCl [Flomax 0.4 mg Cap.sr] 0.4 mg PO DAILY 08/21/20 Allergies/Adverse Reactions: No Known Allergies Allergy (Verified 08/21/20 09:31) Review of Systems Cardiovascular: ABSENT: as per HPI, chest pain, dyspnea on exertion, edema, orthropnea, palpitations, other Gastrointestinal: PRESENT: abdominal pain Genitourinary: ABSENT: as per HPI, difficulty urinating, dysuria, hematuria, nocturia, other Neurological: ABSENT: as per HPI, abnormal gait, abnormal movements, abnormal speech, confusion, convulsions, dizziness, focal weakness, frequent falls, lack of coordination, memory loss, numbness, paresthesias, restless legs, syncope, tingling, tremor(s), vertigo, weakness, other Endocrine: ABSENT: as per HPI, cold intolerance, flushing, heat intolerance, menstrual abnormalities, polydipsia, polyphagia, polyuria, other Hematologic/Lymphatic: ABSENT: as per HPI, easy bleeding, easy bruising, lymphadenopathy, other Physical Exam Vital Signs: Temp Pulse Resp BP Pulse Ox 97.7 F 83 20 119/71 92 08/21/20 22:45 08/22/20 08:15 08/22/20 08:15 08/22/20 07:15 08/22/20 08:15 Intake & Output 08/21/20 08/22/20 08/23/20 06:59 06:59 06:59 Intake Total 1740 Balance 1740 Weight 154.5 kg General appearance: PRESENT: no acute distress, morbidly obese, well-developed Head exam: PRESENT: atraumatic, normocephalic Eye exam: PRESENT: conjunctiva pink, EOMI Mouth exam: PRESENT: moist Respiratory exam: PRESENT: symmetrical, unlabored Cardiovascular exam: PRESENT: irregular rhythm, +S1, +S2, other - Healed permanent pacemaker implant site. A linear scar no edema erythema or excoriation. GI/Abdominal exam: PRESENT: distended, soft Rectal exam: PRESENT: deferred Neurological exam: PRESENT: alert, awake, oriented to person, oriented to place, oriented to time, oriented to situation Skin exam: PRESENT: dry, intact Results Laboratory Results: 08/22/20 06:27 08/22/20 06:27 08/21/20 08/21/20 08/21/20 10:22 10:22 10:22 WBC 13.1 H RBC 4.65 Hgb 14.9 Hct 45.0 MCV 97 MCH 32.0 MCHC 33.1 RDW 13.8 Plt Count 115 L Seg Neutrophils % Not Reportable Sodium 134.9 L Potassium 4.3 Chloride 96 L Carbon Dioxide 29 Anion Gap 10 BUN 14 Creatinine 0.67 Est GFR ( Amer) > 60 Glucose 182 H Calcium 9.2 Phosphorus Magnesium 1.5 L Total Bilirubin 2.0 H AST 22 Alkaline Phosphatase 61 Ammonia Total Protein 6.5 Albumin 3.8 Triglycerides Cholesterol LDL Cholesterol Direct VLDL Cholesterol HDL Cholesterol Amylase Lipase 19.6 L TSH Free T4 Urine Color YELLOW Urine Appearance CLEAR Urine pH 7.0 Ur Specific [place] 1.026 Urine Protein NEGATIVE Urine Glucose (UA) 150 H Urine Ketones 20 H Urine Blood NEGATIVE Urine Nitrite NEGATIVE Ur Leukocyte Esterase NEGATIVE Urine WBC (Auto) 1 Urine RBC (Auto) 3 08/21/20 08/21/20 08/21/20 10:22 16:50 16:50 WBC RBC Hgb Hct MCV MCH MCHC RDW Plt Count Seg Neutrophils % Sodium Potassium Chloride Carbon Dioxide Anion Gap BUN Creatinine Est GFR ( Amer) Glucose Calcium Phosphorus 3.5 Magnesium 1.5 L Total Bilirubin AST Alkaline Phosphatase Ammonia < 8.7 L Total Protein Albumin Triglycerides Cholesterol LDL Cholesterol Direct VLDL Cholesterol HDL Cholesterol Amylase 32 Lipase 14.7 L TSH 0.62 Free T4 1.17 Urine Color Urine Appearance Urine pH Ur Specific [place] Urine Protein Urine Glucose (UA) Urine Ketones Urine Blood Urine Nitrite Ur Leukocyte Esterase Urine WBC (Auto) Urine RBC (Auto) 08/21/20 08/22/20 08/22/20 22:55 06:27 06:27 WBC 18.5 H RBC 4.42 Hgb 14.4 Hct 42.8 MCV 97 MCH 32.5 MCHC 33.6 RDW 14.0 Plt Count 101 L Seg Neutrophils % Not Reportable Sodium 132.7 L Potassium 4.1 Chloride 93 L Carbon Dioxide 29 Anion Gap 11 BUN 16 Creatinine 0.94 Est GFR ( Amer) > 60 Glucose 123 H Calcium 8.4 Phosphorus Magnesium Total Bilirubin 3.2 H AST 24 Alkaline Phosphatase 52 Ammonia Total Protein 5.9 L Albumin 3.3 L Triglycerides 38 Cholesterol 87.30 LDL Cholesterol Direct < 30 VLDL Cholesterol 8.0 L HDL Cholesterol 48 Amylase Lipase TSH Free T4 Urine Color ARUN Urine Appearance SLIGHTLY-CLOUDY Urine pH 5.0 Ur Specific [place] 1.035 Urine Protein 30 H Urine Glucose (UA) 50 H Urine Ketones TRACE H Urine Blood NEGATIVE Urine Nitrite NEGATIVE Ur Leukocyte Esterase NEGATIVE Urine WBC (Auto) 2 Urine RBC (Auto) 2 08/21/20 08/21/20 08/21/20 10:22 10:22 10:22 Creatine Kinase 47 L CK-MB (CK-2) Troponin I < 0.012 NT-Pro-B Natriuret Pep 1260 H 08/21/20 08/21/20 08/21/20 16:50 16:50 23:04 Creatine Kinase 74 87 CK-MB (CK-2) 0.80 Troponin I < 0.012 NT-Pro-B Natriuret Pep 08/21/20 08/22/20 08/22/20 23:04 06:27 07:16 Creatine Kinase 117 CK-MB (CK-2) 0.62 0.54 Troponin I < 0.012 < 0.012 NT-Pro-B Natriuret Pep EKG Comments: Twelve-lead EKG independently viewed by me 08/21/2020 Atrial fibrillation, right bundle branch block 85 bpm Impressions: Abdomen Ultrasound 08/21/20 10:04 IMPRESSION: Multiple shadowing gallstones. Gallbladder wall thickening with pericholecystic fluid. Findings are worrisome for acute cholecystitis. Assessment & Plan - Diagnosis (1) Preop cardiovascular exam Is this a current diagnosis for this admission?: Yes Plan: Patient is an acceptable risk for planned surgery without further restratification. He is able to do more than 4 mets in terms of daily activity although somewhat limited by habitus. No symptoms suggestive of ongoing angina. Furthermore recent ischemic evaluation with stress test last year was negative per patient. He also had an echocardiogram without any workable abnormalities as reported me. Should proceed with surgery with usual precautions. Continue antihypertensive medications Systemic anticoagulation with apixaban has been interrupted for the nature of the surgery. Should be resumed as soon as possible given permanent atrial fibrillation and increased chance of stroke. Patient does not appear to be pacemaker dependent by EKG. He has a [employer] permanent pacemaker left-sided (2) Chronic atrial fibrillation Is this a current diagnosis for this admission?: Yes Plan: Asymptomatic chronic permanent atrial fibrillation Rate control strategy only Long-term systemic anticoagulation. Apixaban has been interrupted for the surgery. Should be resumed soon as feasible. Patient has permanent pacemaker instituted in 2012 probably for sick sinus syndrome.
--- NOTE | 2020-08-22 12:13 | PDOC PROGRESS REPORT ---
Subjective Date:: 08/22/20 Subjective:: Patient was admitted with abdominal pain diagnosed with acute cholecystitis Patient have a history of the A. fib and coronary disease currently see a Dr. Collins to [facility] have a stress test and echo done last year was all stable Also have a sleep apnea supposed to use a CPAP machine but not using Patient's denied any chest pain no short of breath Abdominal pain is currently under control Is currently on Eliquis hold due to the possible post procedure Discussed with the local cardiology and discuss with the surgery Reason For Visit: ACUTE CHOLECYSTITIS,MULTIPLE CO MORBID CONDITIONS Physical Exam Vital Signs: Temp Pulse Resp BP Pulse Ox 98.4 F 102 H 20 114/64 87 L 08/22/20 10:44 08/22/20 11:20 08/22/20 11:20 08/22/20 10:44 08/22/20 11:20 Intake & Output 08/21/20 08/22/20 08/23/20 06:59 06:59 06:59 Intake Total 1740 Balance 1740 Weight 154.5 kg General appearance: PRESENT: no acute distress Eye exam: PRESENT: PERRLA Mouth exam: PRESENT: neck supple Respiratory exam: PRESENT: clear to auscultation elmira Cardiovascular exam: PRESENT: +S1, +S2 GI/Abdominal exam: PRESENT: normal bowel sounds, soft Neurological exam: PRESENT: alert, awake, oriented to person, oriented to place, oriented to time, oriented to situation, reflexes normal Skin exam: PRESENT: dry Results Laboratory Results: 08/22/20 06:27 08/22/20 06:27 08/21/20 08/21/20 08/21/20 10:22 16:50 16:50 WBC RBC Hgb Hct MCV MCH MCHC RDW Plt Count Seg Neutrophils % Sodium Potassium Chloride Carbon Dioxide Anion Gap BUN Creatinine Est GFR ( Amer) Glucose Calcium Phosphorus 3.5 Magnesium 1.5 L Total Bilirubin AST Alkaline Phosphatase Ammonia < 8.7 L Total Protein Albumin Triglycerides Cholesterol LDL Cholesterol Direct VLDL Cholesterol HDL Cholesterol Amylase 32 Lipase 14.7 L TSH 0.62 Free T4 1.17 Urine Color Urine Appearance Urine pH Ur Specific Willards Urine Protein Urine Glucose (UA) Urine Ketones Urine Blood Urine Nitrite Ur Leukocyte Esterase Urine WBC (Auto) Urine RBC (Auto) 08/21/20 08/22/20 08/22/20 22:55 06:27 06:27 WBC 18.5 H RBC 4.42 Hgb 14.4 Hct 42.8 MCV 97 MCH 32.5 MCHC 33.6 RDW 14.0 Plt Count 101 L Seg Neutrophils % Not Reportable Sodium 132.7 L Potassium 4.1 Chloride 93 L Carbon Dioxide 29 Anion Gap 11 BUN 16 Creatinine 0.94 Est GFR ( Amer) > 60 Glucose 123 H Calcium 8.4 Phosphorus Magnesium Total Bilirubin 3.2 H AST 24 Alkaline Phosphatase 52 Ammonia Total Protein 5.9 L Albumin 3.3 L Triglycerides 38 Cholesterol 87.30 LDL Cholesterol Direct < 30 VLDL Cholesterol 8.0 L HDL Cholesterol 48 Amylase Lipase TSH Free T4 Urine Color ARUN Urine Appearance SLIGHTLY-CLOUDY Urine pH 5.0 Ur Specific Willards 1.035 Urine Protein 30 H Urine Glucose (UA) 50 H Urine Ketones TRACE H Urine Blood NEGATIVE Urine Nitrite NEGATIVE Ur Leukocyte Esterase NEGATIVE Urine WBC (Auto) 2 Urine RBC (Auto) 2 08/21/20 08/21/20 08/21/20 10:22 10:22 10:22 Creatine Kinase 47 L CK-MB (CK-2) Troponin I < 0.012 NT-Pro-B Natriuret Pep 1260 H 08/21/20 08/21/20 08/21/20 16:50 16:50 23:04 Creatine Kinase 74 87 CK-MB (CK-2) 0.80 Troponin I < 0.012 NT-Pro-B Natriuret Pep 08/21/20 08/22/20 08/22/20 23:04 06:27 07:16 Creatine Kinase 117 CK-MB (CK-2) 0.62 0.54 Troponin I < 0.012 < 0.012 NT-Pro-B Natriuret Pep Impressions: Abdomen Ultrasound 08/21/20 10:04 IMPRESSION: Multiple shadowing gallstones. Gallbladder wall thickening with pericholecystic fluid. Findings are worrisome for acute cholecystitis. Assessment & Plan - Diagnosis (1) Acute calculous cholecystitis Is this a current diagnosis for this admission?: Yes Plan: Continues the IV antibiotic discussed with the patient and discussed with the surgery patients currently stable enough for the procedures still have a multiple comorbidity (2) Obstructive sleep apnea Is this a current diagnosis for this admission?: Yes Plan: Encourage the patient's to use CPAP will put the CPAP at nighttime (3) Essential hypertension Is this a current diagnosis for this admission?: Yes Plan: Continues the IV as needed pain medications while patient is n.p.o. (4) Chronic atrial fibrillation Is this a current diagnosis for this admission?: Yes Plan: Currently hold the Eliquis restart after the procedures if is okay with the surgery (5) Leukocytosis Qualifiers: Leukocytosis type: unspecified Qualified Code(s): D72.829 - Elevated white blood cell count, unspecified Is this a current diagnosis for this admission?: Yes Plan: Continues the IV antibiotic - Time Time Spent with patient: 15-24 minutes Level of Care: TELE Medications reviewed and adjusted accordingly: Yes Anticipated discharge: Home Anticipated DC Timeframe: Other - Plan Summary Plan Summary: Continues the current medications reviewed all medications discussed with the patient discussed with the clinical education consultant including the cardiology and surgery
--- NOTE | 2020-08-22 12:14 | RADIOLOGY REPORT (SQ) ---
EXAM DESCRIPTION: CHEST SINGLE VIEW IMAGES COMPLETED DATE/TIME: 08/22/2020 11:45 am REASON FOR STUDY: pre op COMPARISON: 11/03/2015 EXAM PARAMETERS: NUMBER OF VIEWS: One view. TECHNIQUE: Single frontal radiographic view of the chest acquired. RADIATION DOSE: NA LIMITATIONS: None. FINDINGS: LUNGS AND PLEURA: No opacities, masses or pneumothorax. No pleural effusion. MEDIASTINUM AND HILAR STRUCTURES: No masses. Contour normal. HEART AND VASCULAR STRUCTURES: Heart normal in size. Normal vasculature. BONES: No acute findings. HARDWARE: Pacemaker. OTHER: No other significant finding. IMPRESSION: NO ACUTE RADIOGRAPHIC FINDING IN THE CHEST. TECHNICAL DOCUMENTATION: JOB ID: [id number] 2010 [employer]- All Rights Reserved Reading location - IP/workstation name: [email or web address]
[2020-08-22] MEDS ORDERED: ONDANSETRON HCL INJ/PF 4 MG/2 ML SDV ONE (12:33)
[2020-08-22] MEDS ORDERED: DEXAMETHASONE SOD PHOSPHATE INJ 4 MG/1 ML VIAL ONE (12:33)
[2020-08-22] MEDS ORDERED: ROCURONIUM BROMIDE INJ 50 MG/5 ML VIAL IV ONE (12:33)
[2020-08-22] MEDS ORDERED: SUCCINYLCHOLINE CHLORIDE INJ 200 MG/10 ML VIAL ONE (12:33)
[2020-08-22] MEDS ORDERED: LIDOCAINE 2% INJ-PF (20 MG/ML) 2 ML AMPUL ONE (12:33)
[2020-08-22] MEDS ORDERED: LEVALBUTEROL HCL NEB 0.63 MG/3 ML AMPUL NEB PRN (13:58)
[2020-08-22] MEDS ORDERED: HYDROMORPHONE HCL INJ/PF 2 MG/ML AMPULE ONE (15:04)
[2020-08-22] MEDS: AMPICILLIN SOD/SULBACTAM 3 GM VIAL IV PRN (15:20)
[2020-08-22] MEDS ORDERED: FENTANYL CITRATE INJ/PF 100 MCG/2 ML AMPUL ONE (16:26)
[2020-08-22] MEDS ORDERED: EPHEDRINE SULFATE INJ 50 MG/1 ML AMPULE ONE (16:26)
[2020-08-22] MEDS ORDERED: PROPOFOL INJ 200 MG/20 ML VIAL IV ONE (16:27)
[2020-08-22] MEDS ORDERED: SUGAMMADEX SODIUM 200 MG/2 ML SDV IV ONE (16:31)
[2020-08-22] MEDS ORDERED: BUPIVACAINE HCL 0.25 % INJ/PF (2.5 MG/1 ML) 30 ML VIAL ONE (16:34)
[2020-08-22] MEDS ORDERED: AMPICILLIN SOD/SULBACTAM 3 GM VIAL ONE (17:25)
[2020-08-22] MEDS ORDERED: FENTANYL CITRATE INJ/PF 100 MCG/2 ML AMPUL IV PRN ×3 (19:29)
[2020-08-22] MEDS ORDERED: MEPERIDINE HCL/PF INJ 25 MG/1 ML DISP.SYRIN IV PRN (19:29)
[2020-08-22] MEDS ORDERED: DIPHENHYDRAMINE HCL 50 MG/ML VIAL IV PRN (19:29)
[2020-08-22] MEDS ORDERED: OXYCODONE-ACETAMINOPHEN 5-325 MG TABLET PO PRN ×2 (19:29)
[2020-08-22] MEDS ORDERED: PROMETHAZINE HCL INJ 25 MG/1 ML VIAL IV PRN ×2 (19:29)
--- NOTE | 2020-08-22 19:37 | Operative Report ---
Operative Report DATE OF SURGERY: 08/22/20 PREOPERATIVE DIAGNOSIS: 1. Acute on chronic cholecystitis with cholelithiasis. 2. Morbid obesity. 3. COPD. 4. Atrial fibrillation AV pacing. 5. Pharmacologically anticoagulated POSTOPERATIVE DIAGNOSIS: Same with near gangrenous cholecystitis OPERATION: 1. Laparoscopic cholecystectomy. 2. Drainage of subhepatic space. 3. Extremely difficult modifier secondary to prolonged operating time, and degree of difficulty during dissection due to acute and chronic inflammation SURGEON: CHANDLER GARCIA ANESTHESIA: GA TISSUE REMOVED OR ALTERED: 1 gallbladder and stones in multiple fragments COMPLICATIONS: None ESTIMATED BLOOD LOSS: 200 cc INTRAOPERATIVE FINDINGS: See below PROCEDURE: The patient was taken to the preoperative area to the main operating room and general anesthesia was induced. The intubation was performed using a glide s cope. The patient was found to have posterior hypopharyngeal redundant tissue, and small white opening. The tube was secured in place by the anesthesiologist with excellent saturations The patient was then optimized in position considering his morbid obesity this required some manipulation of his torso. Arms were extended, the abdomen prepped and draped with Betadine Surgical plan and surgical timeout were conducted. The patient has known previous abdominal wall reconstruction with mesh at the level of the umbilicus. Markings were made on the skin for initial for port laparoscopy in the subxiphoid, supraumbilical position, and subcostal position. Markings were anesthetized 1% plain lidocaine. A 15 blade was used to make a mindy in the skin in mid subcostal position, Veress needle inserted the peritoneal cavity, pneumoperitoneum was established. Veress needle was removed, 5 mm and a 5 mm flexible endoscope was inserted the peritoneal cavity. There were adhesions between the anterior abdominal wall, and the umbilicus, photograph taken. Under direct visualization 3 additional ports were placed 1 in the subxiphoid, 1 in the suprapubic position approximately 6 cm above the um bilicus and a second subcostal port. Findings were significant for an acutely inflamed gallbladder, gangrenous in areas. Photos were taken. The omentum was swept off of the gallbladder easily. There was approximately 200 cc of ascitic fluid around the right lobe of the liver. This was aspirated. There was no evidence of gallbladder perforation or bleeding. The gallbladder was now aspirated of approximately 65 cc of dark bile using the percutaneous trocar. The gallbladder was now grasped from the fundus and mid position and further delineation of the lower fundus-infundibulum anatomy was attempted. Because of the chronic peel surrounding the gallbladder,, and large omentum, the fifth port was placed, and a fan retractor used to those the infundibulum further. Desai and suction dissector was used to free up more of the infundibulum. However the infundibulum never from the underlying critical structures, therefore this approach was aborted. We repositioned retractors, and began taking the gallbladder down from the fundus. This required extensive amount of traction, suction and cautery to the acute and chronic inflammation. Separation of the wall the gallbladder from the liver bed was extremely challenging. We worked this approach all the way down to the mid section of the gallbladder. The right-sided 5 mm port was switched over to a 10 mm port, and a 10 mm grasper was used to manipulate the gallbladder. I now amputated the gallbladder approximately two th[address] the way towards the infundibulum. This was accomplished with the ligature device. After approximately 45 minutes of operating, we had the gallbladder now suspended from the infundibulum, and two tubular structures. Audible photographs were taken. Due to the extreme difficulty of this operation, and time elapsed, the extremely difficult modifier was used. Again please see photographs demonstrating degree of inflammation, poor tissue plane delineation etc. A small mindy was made in the more cephalad tubular structure with the release of bright red blood consistent with the cystic artery. The structure was then clipped twice proximally once distally divided with scissors. The gallbladder remnant representing proximal one third of the gallbladder, was suspended solely by the cystic duct. We got all the way around the infundibulum and cystic duct and confirmed there were no other attachments. Photos were taken. The cystic duct was clipped, and the gallbladder remnant amputated. We placed a PDS 0 Endoloop on the cystic duct. At no point was there any concern about the accuracy of the data me described above. We placed an Endobag through the 10 mm port, placed all gallbladder fragments and stones into the bag and extracted the contents from the patient and sent t hat all to pathology as gallbladder and contents. We placed a large Romel drain through the far right subcostal port site, trimmed to the appropriate length, the sewed it to the skin with 3-0 Ethilon, trimmed to the appropriate length internally, and placed in the hepatic space. We did check the cystic artery and cystic duct stumps and they were in good position, clips in LigaSure secured, and no evidence of bile or blood leaking. There was minimal oozing from the gallbladder fossa. At this point the patient remained hemodynamically stable and was leveled out, and all residual clots removed from the subhepatic space. Needle counts are correct. All ports removed under direct visualization, 10 mm port site closed longitudinally with the multiple 0 Vicryl sutures, and all other incisions closed with 3-0 Vicryl. Benzoin and Steri-Strips applied. Patient tolerated procedure well, extubated, taken recovery to the room in stable condition.
[2020-08-22] MEDS: ATORVASTATIN CALCIUM 10 MG TABLET PO SCH (21:21)
[2020-08-22] MEDS: TOPIRAMATE 100 MG TABLET PO SCH (21:21)
[2020-08-22] MEDS: CLONIDINE HCL 0.1 MG TABLET PO SCH (21:21)
[2020-08-23] MEDS: AMPICILLIN SODIUM/SULBACTAM NA 3 GM in NORMAL SALINE 100 ML IV SCH ×4 (00:20→17:34)
[2020-08-23] MEDS: ALBUTEROL SULFATE 0.083% NEB 2.5 MG/3 ML AMPUL NEB SCH ×8 (02:26→23:41)
[2020-08-23 07:03] LABS: BLOOD UREA NITROGEN 22 mg/dL (7-20); CALCIUM 7.9 mg/dL (8.4-10.2); CARBON DIOXIDE 32 mmol/L (22-30); CHLORIDE 99 mmol/L (98-107); GLUCOSE 129 mg/dL (75-110); POTASSIUM 4.4 mmol/L (3.6-5.0)
[2020-08-23 07:12] LABS: ANION GAP 4 (5-19)
--- NOTE | 2020-08-23 07:47 | PDOC PROGRESS REPORT ---
Subjective Date:: 08/23/20 Subjective:: feels much better shyla diet Reason For Visit: ACUTE CHOLECYSTITIS,MULTIPLE CO MORBID CONDITIONS Physical Exam Vital Signs: Temp Pulse Resp BP Pulse Ox 98.7 F 96 16 127/65 H 98 08/23/20 01:15 08/23/20 04:25 08/23/20 04:25 08/23/20 01:15 08/23/20 04:25 Intake & Output 08/22/20 08/23/20 08/24/20 06:59 06:59 06:59 Intake Total 1740 2019 Output Total 106 Balance 1740 955 Weight 154.5 kg 154.1 kg General appearance: PRESENT: morbidly obese Head exam: PRESENT: normocephalic Eye exam: PRESENT: EOMI Ear exam: PRESENT: normal external ear exam Mouth exam: PRESENT: moist Teeth exam: PRESENT: poor dentation Neck exam: PRESENT: full ROM Respiratory exam: PRESENT: clear to auscultation elmira Cardiovascular exam: PRESENT: RRR Pulses: PRESENT: normal radial pulses, normal femoral pulses Vascular exam: PRESENT: normal capillary refill Breast: PRESENT: Normal GI/Abdominal exam: PRESENT: soft - erma with min op lap sites clean Rectal exam: PRESENT: deferred Extremities exam: PRESENT: full ROM Musculoskeletal exam: PRESENT: full ROM Neurological exam: PRESENT: alert, awake, oriented to person, oriented to place Skin exam: PRESENT: dry Results Laboratory Results: 08/23/20 06:03 08/23/20 06:03 08/22/20 08/22/20 08/23/20 06:27 06:27 06:03 WBC 18.5 H Cancelled RBC 4.42 Cancelled Hgb 14.4 Cancelled Hct 42.8 Cancelled MCV 97 Cancelled MCH 32.5 Cancelled MCHC 33.6 Cancelled RDW 14.0 Cancelled Plt Count 101 L Cancelled Seg Neutrophils % Not Reportable Cancelled Sodium 132.7 L Potassium 4.1 Chloride 93 L Carbon Dioxide 29 Anion Gap 11 BUN 16 Creatinine 0.94 Est GFR ( Amer) > 60 Glucose 123 H Calcium 8.4 Total Bilirubin 3.2 H AST 24 Alkaline Phosphatase 52 Total Protein 5.9 L Albumin 3.3 L Triglycerides 38 Cholesterol 87.30 LDL Cholesterol Direct < 30 VLDL Cholesterol 8.0 L HDL Cholesterol 48 08/23/20 06:03 WBC RBC Hgb Hct MCV MCH MCHC RDW Plt Count Seg Neutrophils % Sodium 134.5 L Potassium 4.4 Chloride 99 Carbon Dioxide 32 H Anion Gap 4 L BUN 22 H Creatinine 1.00 Est GFR ( Amer) > 60 Glucose 129 H Calcium 7.9 L Total Bilirubin AST Alkaline Phosphatase Total Protein Albumin Triglycerides Cholesterol LDL Cholesterol Direct VLDL Cholesterol HDL Cholesterol 08/21/20 08/21/20 08/21/20 10:22 10:22 10:22 Creatine Kinase 47 L CK-MB (CK-2) Troponin I < 0.012 NT-Pro-B Natriuret Pep 1260 H 08/21/20 08/21/20 08/21/20 16:50 16:50 23:04 Creatine Kinase 74 87 CK-MB (CK-2) 0.80 Troponin I < 0.012 NT-Pro-B Natriuret Pep 08/21/20 08/22/20 08/22/20 23:04 06:27 07:16 Creatine Kinase 117 CK-MB (CK-2) 0.62 0.54 Troponin I < 0.012 < 0.012 NT-Pro-B Natriuret Pep Impressions: Abdomen Ultrasound 08/21/20 10:04 IMPRESSION: Multiple shadowing gallstones. Gallbladder wall thickening with pericholecystic fluid. Findings are worrisome for acute cholecystitis. Chest X-Ray 08/22/20 00:00 IMPRESSION: NO ACUTE RADIOGRAPHIC FINDING IN THE CHEST. Assessment & Plan - Time Anticipated Discharge Disposition: Home, Self Care Anticipated Discharge Timeframe: within 24 hours - Plan Summary Plan Summary: s/.p lap licha pt doing well this am feels better shyla diet min op via erma drain lap sites clean\ will need to be restarted on a anticoag meds ok to restart from surgery standpt\ pt can follow up in 7-10 days in surgery clinic please reconsult surgey if necessary.
[2020-08-23 08:49] LABS: HEMATOCRIT 39.1 % (37.9-51.0); HEMOGLOBIN 12.6 g/dL (13.5-17.0); MEAN CORPUSCULAR HEMOGLOBIN 31.6 pg (27.0-33.4); MEAN CORPUSCULAR HGB CONC 32.3 g/dL (32.0-36.0); MEAN CORPUSCULAR VOLUME 98 fl (80-97); RED BLOOD COUNT 4.01 10^6/uL (4.35-5.55); RED CELL DISTRIBUTION WIDTH 14.5 % (11.5-14.0); WHITE BLOOD COUNT 11.7 10^3/uL (4.0-10.5)
[2020-08-23 09:16] LABS: ABSOLUTE LYMPHOCYTES# (MANUAL) 0.2 10^3/uL (0.5-4.7); ABSOLUTE MONOCYTES # (MANUAL) 0.1 10^3/uL (0.1-1.4); BAND NEUTROPHILS % (MANUAL) 1 % (3-5); BASOPHILS % (MANUAL) 0 % (0-2); EOSINOPHILS % (MANUAL) 0 % (0-6); LYMPHOCYTES % (MANUAL) 2 % (13-45); METAMYELOCYTES % (MANUAL) 1 % (0-1); MONOCYTES % (MANUAL) 1 % (3-13); SEGMENTED NEUTROPHILS % (MAN) 95 % (42-78); TOTAL CELLS COUNTED 100
[2020-08-23 09:19] LABS: PLATELET CLUMPS PRESENT; PLATELET COMMENT DECREASED; PLATELET LARGE PRESENT; RBC MORPHOLOGY COMMENT NORMO-CYTIC/CHROMIC
[2020-08-23 09:20] LABS: PLATELET COUNT 104 10^3/uL (150-450)
[2020-08-23] MEDS: METOPROLOL SUCCINATE 50 MG TAB.SR.24H PO SCH (09:21)
[2020-08-23] MEDS: TAMSULOSIN HCL 0.4 MG CAP.SR.24H PO SCH (09:21)
[2020-08-23] MEDS: DOCUSATE SODIUM 100 MG CAPSULE PO SCH ×2 (09:21→17:34)
[2020-08-23] MEDS: LISINOPRIL 10 MG TABLET PO SCH (09:22)
[2020-08-23] MEDS: FLUTICASONE/VILANTEROL 100-25 MCG/DOSE IH SCH (09:22)
--- NOTE | 2020-08-23 12:07 | PDOC PROGRESS REPORT ---
Subjective Date:: 08/23/20 Subjective:: Patient is currently doing much better status post lap licha Patient's denied any chest pain no short of breath Patient's as per discussed with the surgery restart the Eliquis Reason For Visit: ACUTE CHOLECYSTITIS,MULTIPLE CO MORBID CONDITIONS Physical Exam Vital Signs: Temp Pulse Resp BP Pulse Ox 99.0 F 106 H 20 140/77 H 98 08/23/20 09:12 08/23/20 09:12 08/23/20 09:12 08/23/20 09:12 08/23/20 09:12 Intake & Output 08/22/20 08/23/20 08/24/20 06:59 06:59 06:59 Intake Total 1740 2020 Output Total 1065 Balance 1740 955 Weight 154.5 kg 154.1 kg General appearance: PRESENT: no acute distress, well-developed, well-nourished Head exam: PRESENT: atraumatic, normocephalic Eye exam: PRESENT: conjunctiva pink, EOMI, PERRLA. ABSENT: scleral icterus Ear exam: PRESENT: normal external ear exam Mouth exam: PRESENT: moist, tongue midline Neck exam: PRESENT: full ROM. ABSENT: carotid bruit, JVD, lymphadenopathy, thyromegaly Respiratory exam: PRESENT: clear to auscultation elmira Cardiovascular exam: PRESENT: RRR. ABSENT: diastolic murmur, rubs, systolic murmur Vascular exam: PRESENT: normal capillary refill GI/Abdominal exam: PRESENT: normal bowel sounds. ABSENT: distended, guarding, mass, organolmegaly, rebound, tenderness Additonal comments: Surgical dressing is intact Rectal exam: PRESENT: deferred Neurological exam: PRESENT: alert, awake, oriented to person, oriented to place, oriented to time, oriented to situation, CN II-XII grossly intact. ABSENT: motor sensory deficit Psychiatric exam: PRESENT: appropriate affect, normal mood. ABSENT: homicidal ideation, suicidal ideation Skin exam: PRESENT: dry, intact, warm. ABSENT: cyanosis, rash Results Laboratory Results: 08/23/20 08:39 08/23/20 06:03 08/23/20 08/23/20 08/23/20 06:03 06:03 08:39 WBC Cancelled 11.7 H RBC Cancelled 4.01 L Hgb Cancelled 12.6 L Hct Cancelled 39.1 MCV Cancelled 98 H MCH Cancelled 31.6 MCHC Cancelled 32.3 RDW Cancelled 14.5 H Plt Count Cancelled 104 L Seg Neutrophils % Cancelled Not Reportable Sodium 134.5 L Potassium 4.4 Chloride 99 Carbon Dioxide 32 H Anion Gap 4 L BUN 22 H Creatinine 1.00 Est GFR ( Amer) > 60 Glucose 129 H Calcium 7.9 L 08/21/20 08/21/20 08/21/20 10:22 10:22 10:22 Creatine Kinase 47 L CK-MB (CK-2) Troponin I < 0.012 NT-Pro-B Natriuret Pep 1260 H 08/21/20 08/21/20 08/21/20 16:50 16:50 23:04 Creatine Kinase 74 87 CK-MB (CK-2) 0.80 Troponin I < 0.012 NT-Pro-B Natriuret Pep 08/21/20 08/22/20 08/22/20 23:04 06:27 07:16 Creatine Kinase 117 CK-MB (CK-2) 0.62 0.54 Troponin I < 0.012 < 0.012 NT-Pro-B Natriuret Pep Impressions: Abdomen Ultrasound 08/21/20 10:04 IMPRESSION: Multiple shadowing gallstones. Gallbladder wall thickening with pericholecystic fluid. Findings are worrisome for acute cholecystitis. Chest X-Ray 08/22/20 00:00 IMPRESSION: NO ACUTE RADIOGRAPHIC FINDING IN THE CHEST. Assessment & Plan - Diagnosis (1) Acute calculous cholecystitis Is this a current diagnosis for this admission?: Yes Plan: Status post lap licha currently doing well (2) Obstructive sleep apnea Is this a current diagnosis for this admission?: Yes Plan: Encourage the patient to use a CPAP (3) Essential hypertension Is this a current diagnosis for this admission?: Yes Plan: Currently all stable (4) Chronic atrial fibrillation Is this a current diagnosis for this admission?: Yes Plan: Restart the Eliquis (5) Leukocytosis Qualifiers: Leukocytosis type: unspecified Qualified Code(s): D72.829 - Elevated white blood cell count, unspecified Is this a current diagnosis for this admission?: Yes (6) Chronic obstructive pulmonary disease Qualifiers: COPD type: unspecified COPD Qualified Code(s): J44.9 - Chronic obstructive pulmonary disease, unspecified Is this a current diagnosis for this admission?: Yes (7) History of aortic aneurysm Is this a current diagnosis for this admission?: Yes - Time Time Spent with patient: 15-24 minutes Level of Care: TELE Medications reviewed and adjusted accordingly: Yes Anticipated discharge: Home with Homehealth Anticipated DC Timeframe: within 24 hours - Plan Summary Plan Summary: Restart the Eliquis continues the current medications
--- NOTE | 2020-08-23 13:27 | PDOC PROGRESS REPORT ---
Subjective Date:: 08/23/20 Subjective:: Patient seen and examined. Doing well after laparoscopic cholecystectomy. Mild abdominal discomfort. No events no chest pain. No palpitations. Reason For Visit: ACUTE CHOLECYSTITIS,MULTIPLE CO MORBID CONDITIONS Physical Exam Vital Signs: Temp Pulse Resp BP Pulse Ox 99.0 F 92 16 140/77 H 94 08/23/20 09:12 08/23/20 11:53 08/23/20 11:53 08/23/20 09:12 08/23/20 11:53 Intake & Output 08/22/20 08/23/20 08/24/20 06:59 06:59 06:59 Intake Total 1740 2020 Output Total 1065 Balance 1740 955 Weight 154.5 kg 154.1 kg General appearance: PRESENT: no acute distress, cooperative, morbidly obese, well-developed, well-nourished Head exam: PRESENT: atraumatic, normocephalic Eye exam: PRESENT: conjunctiva pink, EOMI Mouth exam: PRESENT: moist Respiratory exam: PRESENT: clear to auscultation elmira, decreased breath sounds, symmetrical Cardiovascular exam: PRESENT: irregular rhythm, +S1, +S2 Pulses: PRESENT: normal radial pulses GI/Abdominal exam: PRESENT: soft Rectal exam: PRESENT: deferred, other - Postsurgical incisions are bandaged Neurological exam: PRESENT: alert, oriented to person, oriented to place, oriented to time, oriented to situation Skin exam: PRESENT: dry, intact Results Laboratory Results: 08/23/20 08:39 08/23/20 06:03 08/23/20 08/23/20 08/23/20 06:03 06:03 08:39 WBC Cancelled 11.7 H RBC Cancelled 4.01 L Hgb Cancelled 12.6 L Hct Cancelled 39.1 MCV Cancelled 98 H MCH Cancelled 31.6 MCHC Cancelled 32.3 RDW Cancelled 14.5 H Plt Count Cancelled 104 L Seg Neutrophils % Cancelled Not Reportable Sodium 134.5 L Potassium 4.4 Chloride 99 Carbon Dioxide 32 H Anion Gap 4 L BUN 22 H Creatinine 1.00 Est GFR ( Amer) > 60 Glucose 129 H Calcium 7.9 L 08/21/20 08/21/20 08/21/20 10:22 10:22 10:22 Creatine Kinase 47 L CK-MB (CK-2) Troponin I < 0.012 NT-Pro-B Natriuret Pep 1260 H 08/21/20 08/21/20 08/21/20 16:50 16:50 23:04 Creatine Kinase 74 87 CK-MB (CK-2) 0.80 Troponin I < 0.012 NT-Pro-B Natriuret Pep 08/21/20 08/22/20 08/22/20 23:04 06:27 07:16 Creatine Kinase 117 CK-MB (CK-2) 0.62 0.54 Troponin I < 0.012 < 0.012 NT-Pro-B Natriuret Pep Impressions: Abdomen Ultrasound 08/21/20 10:04 IMPRESSION: Multiple shadowing gallstones. Gallbladder wall thickening with pericholecystic fluid. Findings are worrisome for acute cholecystitis. Chest X-Ray 08/22/20 00:00 IMPRESSION: NO ACUTE RADIOGRAPHIC FINDING IN THE CHEST. Assessment & Plan - Diagnosis (1) Preop cardiovascular exam Is this a current diagnosis for this admission?: Yes Plan: Doing well post surgery Resume systemic anticoagulation later today or tomorrow morning. (2) Chronic atrial fibrillation Is this a current diagnosis for this admission?: Yes Plan: Rate control strategy Has permanent pacemaker Demand pacing not pacemaker dependent Resume systemic anticoagulation later today
[2020-08-23] MEDS: OXYCODONE-ACETAMINOPHEN 5-325 MG TABLET PO PRN ×2 (13:51→22:06)
[2020-08-23] MEDS: APIXABAN 5 MG TABLET PO SCH (17:33)
[2020-08-23] MEDS: RINGERS SOLUTION,LACTATED 1,000 ML IV PRN (17:33)
[2020-08-23] MEDS: TOPIRAMATE 100 MG TABLET PO SCH (22:05)
[2020-08-23] MEDS: CLONIDINE HCL 0.1 MG TABLET PO SCH (22:05)
[2020-08-23] MEDS: ATORVASTATIN CALCIUM 10 MG TABLET PO SCH (22:05)
[2020-08-24] MEDS: AMPICILLIN SODIUM/SULBACTAM NA 3 GM in NORMAL SALINE 100 ML IV SCH ×2 (00:41→05:30)
[2020-08-24] MEDS: ALBUTEROL SULFATE 0.083% NEB 2.5 MG/3 ML AMPUL NEB SCH ×3 (02:18→08:12)
[2020-08-24] MEDS: OXYCODONE-ACETAMINOPHEN 5-325 MG TABLET PO PRN (05:32)
[2020-08-24 06:00] LABS: ABSOLUTE LYMPHOCYTES (AUTO) 0.8 10^3/uL (0.5-4.7); ABSOLUTE MONOCYTES (AUTO) 0.7 10^3/uL (0.1-1.4); ABSOLUTE NEUT (AUTO) 7.5 10^3/uL (1.7-8.2); BASOPHILS % (AUTO) 0.1 % (0-2); EOSINOPHILS % (AUTO) 0.1 % (0-6); HEMOGLOBIN 11.6 g/dL (13.5-17.0); LYMPHOCYTES % (AUTO) 8.7 % (13-45); MEAN CORPUSCULAR HEMOGLOBIN 32.1 pg (27.0-33.4); MEAN CORPUSCULAR HGB CONC 33.2 g/dL (32.0-36.0); MEAN CORPUSCULAR VOLUME 97 fl (80-97); MONOCYTES % (AUTO) 7.4 % (3-13); RED BLOOD COUNT 3.63 10^6/uL (4.35-5.55); SEGMENTED NEUTROPHILS % (AUTO) 83.7 % (42-78); TOTAL CELLS COUNTED % (AUTO) 100 %; WHITE BLOOD COUNT 8.9 10^3/uL (4.0-10.5)
[2020-08-24 06:07] LABS: BLOOD UREA NITROGEN 17 mg/dL (7-20); CALCIUM 7.9 mg/dL (8.4-10.2); GLUCOSE 113 mg/dL (75-110)
[2020-08-24 06:13] LABS: CARBON DIOXIDE 32 mmol/L (22-30); CHLORIDE 101 mmol/L (98-107)
[2020-08-24 06:34] LABS: ANION GAP 3 (5-19)
[2020-08-24 06:36] LABS: PLATELET COUNT 98 10^3/uL (150-450)
[2020-08-24] MEDS: DOCUSATE SODIUM 100 MG CAPSULE PO SCH (10:24)
[2020-08-24] MEDS: LISINOPRIL 10 MG TABLET PO SCH (10:24)
[2020-08-24] MEDS: TAMSULOSIN HCL 0.4 MG CAP.SR.24H PO SCH (10:25)
[2020-08-24] MEDS: FLUTICASONE/VILANTEROL 100-25 MCG/DOSE IH SCH (10:25)
[2020-08-24] MEDS: METOPROLOL SUCCINATE 50 MG TAB.SR.24H PO SCH (10:25)
[2020-08-24] MEDS: APIXABAN 5 MG TABLET PO SCH (10:25)
--- NOTE | 2020-08-24 11:45 | PDOC DISCHARGE SUMMARY ---
Impression - Admit/DC Date/PCP Admission Date/Primary Care Provider: 08/21/20 12:17 ADEEL RING MD Discharge Date: 08/24/20 - Discharge Diagnosis (1) Acute calculous cholecystitis Is this a current diagnosis for this admission?: Yes (2) Obstructive sleep apnea Is this a current diagnosis for this admission?: Yes (3) Essential hypertension Is this a current diagnosis for this admission?: Yes (4) Chronic atrial fibrillation Is this a current diagnosis for this admission?: Yes (5) Leukocytosis Is this a current diagnosis for this admission?: Yes (6) Chronic obstructive pulmonary disease Is this a current diagnosis for this admission?: Yes (7) History of aortic aneurysm Is this a current diagnosis for this admission?: Yes - Additional Information Resuscitation Status: Full Code Discharge Diet: Cardiac Discharge Activity: Activity As Tolerated Referrals: ADEEL RING MD [Primary Care Provider] - Follow up as needed Prescriptions: Cephalexin Monohydrate [Keflex 500 mg Capsule] 500 mg PO TID #15 capsule Oxycodone HCl/Acetaminophen [Percocet 5-325 mg Tablet] 1 tab PO Q8 PRN #10 tablet PRN Reason: For Pain Home Medications: Pravastatin Sodium [Pravachol] 20 mg PO QHS 10/03/12 Apixaban [Eliquis 5 mg Tablet] 5 mg PO BID 12/30/15 Lisinopril 20 mg PO DAILY 12/30/15 Topiramate [Topamax 100 mg Tablet] 100 mg PO QHS 12/30/15 Albuterol Sulfate [Albuterol Sulfate Hfa] 2 puff IH Q4HP PRN 08/21/20 Clonidine HCl [Catapres 0.1 mg Tablet] 0.1 mg PO QHS 08/21/20 Fluticasone Propion/Salmeterol [Fluticasone-Salmeterol 100-50] 1 inh IH Q12 08/21/20 Metoprolol Succinate [Toprol Xl 50 mg Tab.sr] 50 mg PO DAILY 08/21/20 Tamsulosin HCl [Flomax 0.4 mg Cap.sr] 0.4 mg PO DAILY 08/21/20 Cephalexin Monohydrate [Keflex 500 mg Capsule] 500 mg PO TID #15 capsule 08/24/20 Oxycodone HCl/Acetaminophen [Percocet 5-325 mg Tablet] 1 tab PO Q8 PRN #10 tablet 08/24/20 History of Present Illiness History of Present Illness: DASHA RPASAD is a 70 year old male This is 70-year-old patient is admitted for the abdominal pain diagnosed with acute cholecystitis and leukocytosis start on IV antibiotic and surgery was consulted Hospital Course Hospital Course: This 70-year-old male with a history of the hypertension hyperlipidemia chronic A. fib COPD and multiple other complications came to the emergency department with abdominal pain patient is diagnosed with acute cholecystitis Patient underwent for the laparoscopic cholecystectomy Patient is doing very well after the cholecystectomy patient's white count is also coming down patient's have a no more issues with the abdominal pain Patient's white count is also coming down Patient having no fever no chills Surgery already signed off the patient's suggest to follow outpatient Cardiology cleared the patient's follow outpatients cardiology restart the Eliquis Physical Exam Vital Signs: Temp Pulse Resp BP Pulse Ox 97.5 F 79 22 H 124/66 95 08/24/20 01:07 08/24/20 08:00 08/24/20 08:00 08/24/20 08:00 08/24/20 08:00 Intake & Output 08/23/20 08/24/20 08/25/20 06:59 06:59 06:59 Intake Total 2020 1961 Output Total 1065 600 Balance 955 1361 Weight 154.1 kg General appearance: PRESENT: no acute distress, well-developed, well-nourished Head exam: PRESENT: atraumatic, normocephalic Eye exam: PRESENT: conjunctiva pink, EOMI, PERRLA. ABSENT: scleral icterus Ear exam: PRESENT: normal external ear exam Mouth exam: PRESENT: moist, tongue midline Neck exam: ABSENT: carotid bruit, JVD, lymphadenopathy, thyromegaly Respiratory exam: PRESENT: clear to auscultation [place]. ABSENT: rales, rhonchi, wheezes Cardiovascular exam: PRESENT: RRR. ABSENT: diastolic murmur, rubs, systolic murmur Pulses: PRESENT: normal dorsalis pedis pul Vascular exam: PRESENT: normal capillary refill GI/Abdominal exam: PRESENT: normal bowel sounds, soft. ABSENT: distended, guarding, mass, organolmegaly, rebound, tenderness Rectal exam: PRESENT: deferred Extremities exam: PRESENT: full ROM. ABSENT: calf tenderness, clubbing, pedal edema Musculoskeletal exam: PRESENT: ambulatory Neurological exam: PRESENT: alert, awake, oriented to person, oriented to place, oriented to time, oriented to situation, CN II-XII grossly intact. ABSENT: motor sensory deficit Psychiatric exam: PRESENT: appropriate affect, normal mood. ABSENT: homicidal ideation, suicidal ideation Skin exam: PRESENT: dry, intact, warm. ABSENT: cyanosis, rash Results Laboratory Results: WBC 8.9 10^3/uL (4.0-10.5) 08/24/20 05:19 RBC 3.63 10^6/uL (4.35-5.55) L 08/24/20 05:19 Hgb 11.6 g/dL (13.5-17.0) L 08/24/20 05:19 Hct 35.0 % (37.9-51.0) L 08/24/20 05:19 MCV 97 fl (80-97) 08/24/20 05:19 MCH 32.1 pg (27.0-33.4) 08/24/20 05:19 MCHC 33.2 g/dL (32.0-36.0) 08/24/20 05:19 RDW 14.0 % (11.5-14.0) 08/24/20 05:19 Plt Count 98 10^3/uL (150-450) L 08/24/20 05:19 Lymph % (Auto) 8.7 % (13-45) L 08/24/20 05:19 [place] % (Auto) 7.4 % (3-13) 08/24/20 05:19 Eos % (Auto) 0.1 % (0-6) 08/24/20 05:19 Baso % (Auto) 0.1 % (0-2) 08/24/20 05:19 Absolute Neuts (auto) 7.5 10^3/uL (1.7-8.2) 08/24/20 05:19 Absolute Lymphs (auto) 0.8 10^3/uL (0.5-4.7) 08/24/20 05:19 Absolute Monos (auto) 0.7 10^3/uL (0.1-1.4) 08/24/20 05:19 Absolute Eos (auto) 0.0 10^3/uL (0.0-0.6) 08/24/20 05:19 Absolute Basos (auto) 0.0 10^3/uL (0.0-0.2) 08/24/20 05:19 Total Counted 100 08/23/20 08:39 Seg Neutrophils % 83.7 % (42-78) H 08/24/20 05:19 Seg Neuts % (Manual) 95 % (42-78) H 08/23/20 08:39 Band Neutrophils % 1 % (3-5) L 08/23/20 08:39 Lymphocytes % (Manual) 2 % (13-45) L 08/23/20 08:39 Monocytes % (Manual) 1 % (3-13) L 08/23/20 08:39 Eosinophils % (Manual) 0 % (0-6) 08/23/20 08:39 Basophils % (Manual) 0 % (0-2) 08/23/20 08:39 Metamyelocytes % 1 % (0-1) 08/23/20 08:39 Abs Neuts (Manual) 11.3 10^3/uL (1.7-8.2) H 08/23/20 08:39 Abs Lymphs (Manual) 0.2 10^3/uL (0.5-4.7) L 08/23/20 08:39 Abs Monocytes (Manual) 0.1 10^3/uL (0.1-1.4) 08/23/20 08:39 Absolute Eos (Manual) 0.0 10^3/uL (0.0-0.6) 08/23/20 08:39 Abs Basophils (Manual) 0.0 10^3/uL (0.0-0.2) 08/23/20 08:39 Platelet Estimate Cancelled 08/23/20 06:03 Clumped Platelets PRESENT 08/23/20 08:39 Large Platelets PRESENT 08/23/20 08:39 Platelet Comment DECREASED 08/23/20 08:39 Anisocytosis SLIGHT 08/22/20 06:27 RBC Morph Comment NORMO-CYTIC/CHROMIC 08/23/20 08:39 PT 15.6 SEC (11.4-15.4) H 08/21/20 16:50 INR 1.22 08/21/20 16:50 APTT 33.7 SEC (23.5-35.8) 08/21/20 16:50 Sodium 135.7 mmol/L (137-145) L 08/24/20 05:19 Potassium 4.0 mmol/L (3.6-5.0) 08/24/20 05:19 Chloride 101 mmol/L (98-107) 08/24/20 05:19 Carbon Dioxide 32 mmol/L (22-30) H 08/24/20 05:19 Anion Gap 3 (5-19) L 08/24/20 05:19 BUN 17 mg/dL (7-20) 08/24/20 05:19 Creatinine 0.89 mg/dL (0.52-1.25) 08/24/20 05:19 Est GFR ( Amer) > 60 (>60) 08/24/20 05:19 Est GFR (MDRD) Non-Af > 60 (>60) 08/24/20 05:19 Glucose 113 mg/dL (75-110) H 08/24/20 05:19 Hemoglobin A1c % 4.9 % (4.7-6.0) 08/22/20 06:27 Calcium 7.9 mg/dL (8.4-10.2) L 08/24/20 05:19 Phosphorus 3.5 mg/dL (2.5-4.5) 08/21/20 16:50 Magnesium 1.5 mg/dL (1.6-2.3) L 08/21/20 16:50 Total Bilirubin 3.2 mg/dL (0.2-1.3) H 08/22/20 06:27 Direct Bilirubin 0.5 mg/dL (0.0-0.4) H 08/22/20 06:27 Neonat Total Bilirubin Not Reportable 08/22/20 06:27 Neonat Direct Bilirubin Not Reportable 08/22/20 06:27 Neonat Indirect Bili Not Reportable 08/22/20 06:27 AST 24 U/L (17-59) 08/22/20 06:27 ALT 14 U/L (<50) 08/22/20 06:27 Alkaline Phosphatase 52 U/L (38-126) 08/22/20 06:27 Ammonia < 8.7 umol/L (9-33) L 08/21/20 16:50 Creatine Kinase 117 U/L (55-170) 08/22/20 06:27 CK-MB (CK-2) 0.54 ng/mL (<4.55) 08/22/20 07:16 Troponin I < 0.012 ng/mL 08/22/20 07:16 NT-Pro-B Natriuret Pep 1260 pg/mL (<125) H 08/21/20 10:22 Total Protein 5.9 g/dL (6.3-8.2) L 08/22/20 06:27 Albumin 3.3 g/dL (3.5-5.0) L 08/22/20 06:27 Triglycerides 38 mg/dL (<150) 08/22/20 06:27 Cholesterol 87.30 mg/dL (0-200) 08/22/20 06:27 LDL Cholesterol Direct < 30 mg/dL (<100) 08/22/20 06:27 VLDL Cholesterol 8.0 mg/dL (10-31) L 08/22/20 06:27 HDL Cholesterol 48 mg/dL (>40) 08/22/20 06:27 Amylase 32 U/L (30-110) 08/21/20 16:50 Lipase 14.7 U/L (23-300) L 08/21/20 16:50 TSH 0.62 uIU/mL (0.47-4.68) 08/21/20 10:22 Free T4 1.17 ng/dL (0.78-2.19) 08/21/20 10:22 Urine Color ARUN 08/21/20 22:55 Urine Appearance SLIGHTLY-CLOUDY 08/21/20 22:55 Urine pH 5.0 (5.0-9.0) 08/21/20 22:55 Ur Specific [place] 1.035 08/21/20 22:55 Urine Protein 30 mg/dL (NEGATIVE) H 08/21/20 22:55 Urine Glucose (UA) 50 mg/dL (NEGATIVE) H 08/21/20 22:55 Urine Ketones TRACE mg/dL (NEGATIVE) H 08/21/20 22:55 Urine Blood NEGATIVE (NEGATIVE) 08/21/20 22:55 Urine Nitrite NEGATIVE (NEGATIVE) 08/21/20 22:55 Urine Bilirubin NEGATIVE (NEGATIVE) 08/21/20 22:55 Urine Urobilinogen 4.0 mg/dL (<2.0) H 08/21/20 22:55 Ur Leukocyte Esterase NEGATIVE (NEGATIVE) 08/21/20 22:55 Urine WBC (Auto) 2 /HPF 08/21/20 22:55 Urine RBC (Auto) 2 /HPF 08/21/20 22:55 Urine Bacteria (Auto) TRACE /HPF 08/21/20 10:22 Squamous Epi Cells Auto <1 /HPF 08/21/20 10:22 Urine Mucus (Auto) RARE /LPF 08/21/20 22:55 Urine Ascorbic Acid NEGATIVE (NEGATIVE) 08/21/20 22:55 Urine Opiates Screen UNCONFIRMED POSITIVE 08/21/20 22:55 Urine Methadone Screen NEGATIVE 08/21/20 22:55 Ur Barbiturates Screen NEGATIVE 08/21/20 22:55 Ur Phencyclidine Scrn NEGATIVE 08/21/20 22:55 Ur Amphetamines Screen NEGATIVE 08/21/20 22:55 U Benzodiazepines Scrn NEGATIVE 08/21/20 22:55 Urine Cocaine Screen NEGATIVE 08/21/20 22:55 U Marijuana (THC) Screen NEGATIVE 08/21/20 22:55 Influenza A (RT-PCR) NEGATIVE (NEGATIVE) 08/22/20 07:50 Influenza B (RT-PCR) NEGATIVE (NEGATIVE) 08/22/20 07:50 RSV (RT-PCR) NEGATIVE (NEGATIVE) 08/22/20 07:50 SARS-CoV-2 Rap RNA(RT-PCR) NEGATIVE (NEGATIVE) 08/22/20 07:50 Slides for Path Review Cancelled 08/23/20 06:03 08/21/20 08/21/20 08/21/20 10:22 10:22 16:50 CK-MB (CK-2) 0.80 Troponin I < 0.012 < 0.012 NT-Pro-B Natriuret Pep 1260 H 08/21/20 08/22/20 23:04 07:16 CK-MB (CK-2) 0.62 0.54 Troponin I < 0.012 < 0.012 NT-Pro-B Natriuret Pep Impressions: Abdomen Ultrasound 08/21/20 10:04 IMPRESSION: Multiple shadowing gallstones. Gallbladder wall thickening with pericholecystic fluid. Findings are worrisome for acute cholecystitis. Chest X-Ray 08/22/20 00:00 IMPRESSION: NO ACUTE RADIOGRAPHIC FINDING IN THE CHEST. Plan Time Spent: Greater than 30 Minutes - Follow outpatient surgery follow in office 1 week we will repeat the CBC and Chem-7 Discussed with the patient's regarding the patient's current conditions Stroke Is this a Stroke Patient?: No Acute Heart Failure Is this a Heart Failure Patient?: No
[2020-08-24 12:13] VITALS: BP 113/63
== END 2020-08-24 12:50 | disposition home or self-care (01) | DRG 418 ==
LOC: ER 09:07 → EH 12:17 → 4S 13:59
PROVIDERS: ADMIT Family Medicine; ATTEND Family Medicine
PROC: 0FT44ZZ Resection of Gallbladder, Percutaneous Endoscopic Approach (ICD-10-PCS; principal; 2020-08-22 14:00)
DX: K80.00 Calculus of gallbladder with acute cholecystitis without obstruction (principal); I48.20 Chronic atrial fibrillation, unspecified; Z68.42 Body mass index [BMI] 45.0-49.9, adult; I97.51 Accidental puncture and laceration of a circulatory system organ or structure during a circulatory system procedure; E66.01 Morbid (severe) obesity due to excess calories; G47.33 Obstructive sleep apnea (adult) (pediatric); I10 Essential (primary) hypertension; J44.9 Chronic obstructive pulmonary disease, unspecified; I71.9 Aortic aneurysm of unspecified site, without rupture; E78.5 Hyperlipidemia, unspecified; I45.10 Unspecified right bundle-branch block; K21.9 Gastro-esophageal reflux disease without esophagitis; Z79.899 Other long term (current) drug therapy; Z87.891 Personal history of nicotine dependence; Z79.02 Long term (current) use of antithrombotics/antiplatelets
CPT/HCPCS: 36415; 71045; 76705; 790; 80048; 80053; 80061; 80307; 81001; 82140; 82150; 82550; 82553; 83036; 83690; 83735; 83880; 84100; 84439; 84443; 84484; 85025; 85610; 85730; 87086; 87088; 87186; 88304; 93005; 93010; 94640; 94799; 99285; 0241U; C9803; J0295; J0330; J1100; J1170; J2270; J2405; J2543; J2704; J3010; J3490; J7030; J7050; J7120; J7613; S0119